=== PATIENT | female | born 1975 | race Caucasian/White ===

== ENCOUNTER 2020-03-01 14:29 | Outpatient (REF) | payer BC, SELFPAY ==
[2020-03-01 15:31] LABS: Hematocrit 42.2 % (37-47); Hemoglobin 14.4 g/dl (12.0-16.0); Mean Corpuscular HGB Conc 34.1 g/dl (31.0-35.0); Mean Corpuscular Hemoglobin 30.7 pg (27.0-33.0); Mean Platelet Volume 10.6 fL (9.4-12.3); Platelet Count 295 X10*3/uL (160-400); Red Blood Count 4.69 X10*6/uL (4.20-5.50); Red Cell Distribution Width 12.7 % (11.0-16.0); White Blood Count 10.4 X10*3/uL (4.8-10.8)
[2020-03-01 15:46] LABS: Estimated Average Glucose 123 mg/dL; Hemoglobin A1C 151.5872 umol/L; Hemoglobin A1c % 5.9 %
[2020-03-01 16:11] LABS: Alanine Aminotransferase 30 U/L (0-31); Albumin Level 4.7 g/dL (3.5-5.0); Alkaline Phosphatase 83 U/L (39-117); Anion Gap 14 (12-20); Aspartate Amino Transferase 23 U/L (5-31); Bilirubin Direct 0.2 mg/dL (0.0-0.5); Bilirubin Total 0.7 mg/dL (0.0-1.0); Blood Urea Nitrogen 17 mg/dL (9-16); Calcium 10.2 mg/dL (8.4-10.2); Carbon Dioxide 29 mmol/L (22-29); Chloride 99 mmol/L (96-108); Cholesterol 190 mg/dL; Estimated Glomerular Filt Rate > 60; Glucose Random 127 mg/dL (60-115); HDL Cholesterol 47 mg/dL; LDL Cholesterol Calculated 102 mg/dl; Potassium 4.3 mmol/l (3.3-5.1); Sodium 138 mmol/L (135-145); Total Protein 7.8 g/dL (6.5-8.0); Triglycerides 206 mg/dL
== END 2020-03-01 14:30 | disposition home or self-care (01) ==
LOC: HO.LAB 14:29
PROVIDERS: PCP Internal Medicine; Visit Provider Internal Medicine
DX: E11.9 Type 2 diabetes mellitus without complications (principal)
CPT/HCPCS: 36415; 80048; 80061; 80076; 83036; 85027

== ENCOUNTER 2022-04-06 15:20 | Outpatient (REF) | payer BC, SELFPAY ==
--- NOTE | ~2022-04-06 | MM_ITS ---
EXAMINATION: MM SCREENING DIGITAL BREAST TOMOSYNTHESIS, BILATERAL CLINICAL INFORMATION: Screening. Asymptomatic. The lifetime risk of breast cancer based on the Tyrer-Cuzick Model is 24.8%. Additional annual screening with breast MRI may be of benefit in women with a score of 20% or greater. COMPARISON: Mammography: March 18, 2019 and studies dating back to October 24, 2010 TECHNIQUE: Digital breast tomosynthesis is performed in both the craniocaudal and mediolateral oblique views along with computer-aided detection (CAD). Synthesized 2D images are generated from the tomosynthesis. FINDINGS: The breasts are heterogeneously dense, which may obscure small masses (ACR BI-RADS breast composition Category c). There are no significant masses, abnormal calcifications, or other abnormalities. There is multiplicity and bilaterality of stable calcifications. MM/MM tomosynthesis screening BI IMPRESSION: No significant changes from prior exam. ASSESSMENT: BI-RADS 1: Negative RECOMMENDATION: Routine annual mammography screening. This patient's information was entered into a reminder system with a target due date for their next mammogram.
== END 2022-04-06 15:21 | disposition home or self-care (01) ==
LOC: HO.MAMMO 15:20
PROVIDERS: PCP Internal Medicine; Visit Provider Internal Medicine
DX: Z12.31 Encounter for screening mammogram for malignant neoplasm of breast (principal)
CPT/HCPCS: 77063; 77067

== ENCOUNTER 2022-07-20 15:33 | Outpatient (REF) | payer BC, SELFPAY ==
[2022-07-20 16:06] LABS: Hematocrit 44.3 % (37.0-47.0); Hemoglobin 15.4 g/dl (12.0-16.0); Mean Corpuscular HGB Conc 34.8 g/dl (31.0-35.0); Mean Corpuscular Hemoglobin 30.4 pg (27.0-33.0); Mean Corpuscular Volume 87.4 fL (80.0-98.0); Mean Platelet Volume 10.4 fL (9.4-12.3); Platelet Count 238 X10*3/uL (160-400); Red Blood Count 5.07 X10*6/uL (4.20-5.50); Red Cell Distribution Width 12.3 % (11.0-16.0); White Blood Count 8.9 X10*3/uL (4.8-10.8)
[2022-07-20 16:32] LABS: Estimated Average Glucose 189 mg/dL; Hemoglobin A1c % 8.2 %
[2022-07-20 16:39] LABS: Alanine Aminotransferase 38 U/L (0-31); Albumin Level 4.5 g/dL (3.5-5.0); Alkaline Phosphatase 79 U/L (39-117); Anion Gap 15 (12-20); Aspartate Amino Transferase 27 U/L (5-31); Bilirubin Direct 0.2 mg/dL (0.0-0.5); Blood Urea Nitrogen 20 mg/dL (9-16); Carbon Dioxide 30 mmol/L (22-29); Chloride 102 mmol/L (96-108); Cholesterol 193 mg/dL; Estimated Glomerular Filt Rate > 60; Glucose Random 112 mg/dL (60-115); HDL Cholesterol 43 mg/dL; LDL Cholesterol Calculated 113 mg/dl; Sodium 143 mmol/L (135-145); Total Protein 7.6 g/dL (6.5-8.0); Triglycerides 188 mg/dL
[2022-07-20 16:53] LABS: Thyroid Stimulating Hormone 1.81 uIU/mL (0.32-4.0)
[2022-07-20 17:46] LABS: Appearance Urine Clear; Color Urine Yellow; Glucose Urine UA Negative (Negative); Leukocyte Esterase Urine Trace (Negative); Nitrite Urine Negative (Negative); Specific Gravity - Urine 1.015 (1.005-1.025); UMIC TRIGGER UA YES; Urine Blood Negative (Negative); Urine Ketones Negative (Negative); Urine Protein Negative (Neg-Trace)
[2022-07-20 18:00] LABS: Bacteria Urine None Seen (None Seen); Hyaline Casts Urine 0-2 /LPF (0-2); RBC Urine 0-2 /HPF (0-2); WBC Urine 0-5 /HPF (0-5)
[2022-07-20 18:04] LABS: Creatinine Urine 68.07 mg/dL; Microalbum/Creatinine Ratio Ur 99.8 ug/mg cr
== END 2022-07-20 15:34 | disposition home or self-care (01) ==
LOC: HO.LAB 15:33
PROVIDERS: PCP Internal Medicine; Visit Provider Internal Medicine
DX: E11.9 Type 2 diabetes mellitus without complications (principal)
CPT/HCPCS: 36415; 80048; 80061; 80076; 81001; 82043; 83036; 84443; 85027

== ENCOUNTER 2022-11-16 07:57 | Outpatient (REF) | payer BC, SELFPAY ==
[2022-11-24 08:59] LABS: HPV mRNA E6/E7 rflx Not Detected (Not Detected)
== END 2022-11-16 07:58 | disposition home or self-care (01) ==
LOC: HO.LNP 07:57
PROVIDERS: PCP Internal Medicine; Visit Provider Obstetrics & Gynecology
DX: Z01.419 Encounter for gynecological examination (general) (routine) without abnormal findings (principal); I10 Essential (primary) hypertension; Z91.89 Other specified personal risk factors, not elsewhere classified
CPT/HCPCS: 87624; 88142

== ENCOUNTER 2022-11-16 07:57 | Outpatient (AMB) | payer BC, SELFPAY ==
--- NOTE | 2022-11-16 08:01 | MHC.OFFVIS ---
Intake Vital Signs 11/16/22 08:04 11/16/22 08:35 Height 5 ft 8 in Weight 270 lb BMI 41.0 BP 160/96 H 180/100 H Intake Visit Reasons: New patient Annual Intake Note: no concerns Vice President Planning Required: No Information Interpreted: non-clinical & clinical Small Package And Bundle Sorter Clerk: Small Package And Bundle Sorter Clerk Present (Karuna HOANG) Accompanied by: Self / Same As Patient Allergies No Known Allergies Allergy (Verified 11/16/22 08:05) HPI HPI Comments History of Present Illness Details Presenting for annual exam. No complaints. Last Pap/HPV was in 06/21 was negative Last Mammogram was BI-RADS 1 in 04/27,TC lifetime breast cancer risk is 24.8% no previous screening colonoscopy [facility] Medical History Class 2 severe obesity with body mass index (BMI) of 35 to 39.9 with serious comorbidity Diabetes mellitus Essential hypertension Surgical History History of ovarian resection History of wisdom tooth extraction Family History Father Prostate cancer Skin cancer Mother No problems noted. 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 Sexual orientation: Straight/Heterosexual Gender identity: Female Cognitive needs: No Hearing needs: No Vision needs: Yes (contact/ glasses) Female Reproductive History Menstrual control method: progestin IUCD Total pregnancies: 0 Date of last pap smear: 06/25/14 Review of Systems Const All systems reviewed & are unremarkable except as noted in HPI and below Card Reports as per HPI Resp Reports as per HPI GI Reports as per HPI and Reports no additional complaints Reports as per HPI Physical Exam Vital Signs: Last Vital Signs BP 160/96 H 11/16/22 08:04 BMI result Body Mass Index 41.0 Const General: cooperative, healthy appearing and comfortable Chest Chest palpation & inspection: normal inspection of the chest and normal palpation of entire chest wall Breast/axilla inspection: normal inspection of the breasts and normal inspection of the axillae Breast/axilla palpation: normal palpation of the breasts, normal palpation of the axillae and no axillary lymphadenopathy Resp Effort & Inspection: normal respiratory effort Auscultation: clear to auscultation bilaterally Percussion: percussion normal Cardio Palpation: normal PMI Rate: regular rate Rhythm: regular rhythm Heart sounds: no murmurs and no rubs Peripheral pulses: Peripheral pulses 2+ throughout GI Inspection: Yes normal to inspection Palpation (GI): Soft to palpation, nontender, no guarding, not rigid and No hepatosplenomegaly present Percussion: Yes normal to percussion Auscultation: normal bowel sounds Rectal Exam - Female: deferred General: Yes bladder normal to palpation External Female Exam: No lesion Speculum Exam - Vagina: normal appearance of the vagina, normal palpation, normal vaginal discharge and not erythematous Speculum Exam - Cervix: normal appearance of the cervix and normal palpation Bimanual exam- vagina & uterus: normal bimanual exam, normal palpation, uterine size normal, bladder normal to palpation, consistency normal and normal palpation Bimanual Exam- Adnexa, other: normal adnexae, no masses and no tenderness Assessment & Plan Assessment & Plan (1) Well woman exam: Code(s): Z01.419 - Encounter for gynecological examination (general) (routine) without abnormal findings Plan: Cotesting done. Instructions given the patient to schedule her next screening Mammogram in 04/28. Counseled the patient about the recommended dietary allowance of 1000 mg of Calcium & 600 IU of vitamin D. The patient was instructed to perform monthly self-breast exams and to schedule an annual exam in a year; will refer the patient to GI for screening colonoscopy. All questions answered and the patient verbalized understanding. Instructed the patient to schedule annual exam in a year (2) At high risk for breast cancer: Code(s): Z91.89 - Other specified personal risk factors, not elsewhere classified Plan: Discussed with the patient her increased risk for Breast ca. The lifetime risk of breast cancer based on the Tyrer-Cuzick Model is 24.8 % Recommended Mirena IUD removal since decrease the risk of breast cancer above her baseline elevated risk, the patient verbalized understanding and decided to schedule an appointment for Mirena IUD removal. Recommended Intensification of breast Cancer screening with annual MRI breast in addition to annual mammogram and MRI alternating every 6 months. Mammogram done recently , Breast MRI ordered Will refer to Dr Kellogg for possible Genetic Ca counseling and possible testing, in addition to counseling regarding Chemoprevention strategies All questions answered, the patient verbalized understanding and agreed with the plan (3) Family planning advice: Code(s): Z30.09 - Encounter for other general counseling and advice on contraception Plan: Informed the patient of her date of Mirena IUD insertion on , discussed with the patient that the Mirena IUD is , in addition recommended IUD removal because of her increased breast cancer risk and a further increase associated with Mirena IUD. Discussed with the patient the different options of control including control pills/Nuvaring, DMPA, different types of IUD ?s ( cu vs progesterone) , sterilization. All the pros, cons, risks and benefits of each were discussed with the patient. The patient decided to think about it and get back to us. Instructions given the patient to schedule Mirena IUD insertion appointment as soon as possible, meanwhile use a backup method for control for contraception since IUD is (4) Essential hypertension: Code(s): I10 - Essential (primary) hypertension Plan: Blood pressure is elevated after multiple readings, the patient was sent to the emergency room for further management. Orders: Orders MR breast BI wo/w con Today Z91.89 - Other specified personal risk factors, not elsewhere classified Pap Smear Today Z01.419 - Encounter for gynecological examination (general) (routine) without abnormal findings Referrals General Surgery Referral Z91.89 - Other specified personal risk factors, not elsewhere classified Gastroenterology Referral Z12.11 - Encounter for screening for malignant neoplasm of colon Coding Level of Care Code New Pt Prev Care 40-64y(86391) Diagnoses Well woman exam Z01.419 At high risk for breast cancer Z91.89 Family planning advice Z30.09 Essential hypertension I10
[2022-11-16 08:04] VITALS: BP 160/96; BMI 41.0
[2022-11-16 08:35] VITALS: BP 180/100
== END 2022-11-16 08:51 | disposition home or self-care (01) ==
LOC: HO.HWS 07:57
PROVIDERS: PCP Internal Medicine; Visit Provider Obstetrics & Gynecology
DX: Z01.419 Encounter for gynecological examination (general) (routine) without abnormal findings (principal); Z91.89 Other specified personal risk factors, not elsewhere classified; I10 Essential (primary) hypertension
CPT/HCPCS: 99386

== ENCOUNTER 2022-11-16 08:51 | Emergency (ER) | payer BC, SELFPAY ==
[2022-11-16 09:22] VITALS: BP 190/96; PULSE 100; RESP 16; TEMP 36.3; O2SAT 99; BMI 41.0
[2022-11-16 09:27] VITALS: BP 199/102
--- NOTE | 2022-11-16 09:28 | ED_ITS ---
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 Patient admits currently takes Losartan 100 mg and Spironolactone 50 mg daily, reports compliance with antihypertensives. Reports PCP recently changed previous HCTZ to Spironolactone. Denies symptoms at present including headache, vision changes/blurry vision, CP/SOB, numbness, tingling, weakness. Related Data Home Medications Medication Instructions Recorded Confirmed aspirin 81 mg tablet,delayed 81 mg PO DAILY 03/08/20 10/20/22 release multivitamin 1 tab PO DAILY 03/08/20 10/20/22 levonorgestrel 21 mcg/24 hours (8 intrauterine 11/16/22 yrs) 52 mg intrauterine device (Mirena) multivitamin 1 tab PO DAILY 11/16/22 Previous Rx's Medication Instructions Recorded Toujeo Max U-300 SoloStar 300 76 unit (0.2533 mL) subcut DAILY 10/20/22 unit/mL (3 mL) subcutaneous 90 days #22.797 mL insulin pen (insulin glargine U-300 conc) insulin lispro 100 unit/mL 20 unit (0.2 mL) subcut TID 90 10/20/22 subcutaneous pen (Humalog #54 mL (U-100) Insulin) losartan 100 mg tablet 100 mg PO DAILY #90 tabs 10/20/22 pen needle, diabetic 32 gauge x #100 ea 10/20/22/ (Comfort EZ Pen [place]) simvastatin 10 mg tablet 10 mg PO BEDTIME #90 tabs 10/20/22 spironolactone 50 mg tablet 50 mg PO DAILY #30 tabs 11/13/22 (Aldactone) Allergies Allergy/AdvReac Type Severity Reaction Status Date / Time No Known Allergies Allergy Verified 11/16/22 08:05 Review of Systems Review of Systems: Constitutional: No Fever, No Chills, No Fatigue, No Malaise ENT/Mouth: No Ear Pain, No sore throat, No Rhinorrhea, No Swallowing Difficulty Eyes: No Eye Pain, No Swelling, No Redness, No Vision Changes Cardiovascular: No Chest Pain, No SOB, No Edema, No Palpitations Respiratory: No Cough, No Sputum, No Dyspnea Gastrointestinal: No Nausea, No Vomiting, No Diarrhea, No Constipation, No Abdominal pain Musculoskeletal: No joint pain, No Myalgias, No Joint Swelling Skin: No Skin Lesions, No rash Neuro: No Weakness, No Numbness, No Paresthesias, No Loss of Consciousness, No Dizziness, No Headache Yes all other systems are reviewed and are negative Constitutional: Constitutional: Reports as per [facility] Past Medical History Attestation statement: The following information was validated with the patient. Source: old records reviewed Medical History Class 2 severe obesity with body mass index (BMI) of 35 to 39.9 with serious comorbidity Diabetes mellitus Essential hypertension Surgical History History of ovarian resection History of wisdom tooth extraction Family History Family History Father Prostate cancer Skin cancer Mother No problems noted. 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 Gender identity: Female Cognitive needs: No Hearing needs: No Vision needs: Yes (contact/ glasses) Physical Exam ED Vital Signs: Vital Signs - 24 hr 11/16/22 09:22 11/16/22 09:27 11/16/22 09:58 Temperature 97.3 F Pulse Rate 100 Respiratory Rate 16 Blood Pressure 190/96 H 199/102 H 198/88 H Pulse Oximetry 99 Oxygen Delivery Method Room Air BMI result Body Mass Index 41.0 Const General: cooperative, healthy appearing and no acute distress Orientation/consciousness: patient oriented x3 Limitations: no limitations HENMT Head: Yes normal to inspection and Yes atraumatic Ears: hearing grossly normal bilaterally General nose exam: Normal external nose present Face and sinus: Yes normal facial exam Eyes General: appearance normal, both eyes and all related structures EOM: EOMs intact bilaterally Neck Neck: Yes normal visual inspection and Yes no meningeal signs Resp Effort & Inspection: normal respiratory effort and no respiratory distress Auscultation: clear to auscultation bilaterally, no rhonchi and no wheezes Cardio Rate: regular rate Heart sounds: S1 normal heart sound present and S2 normal heart sound present Skin Rashes: no rashes Wounds: no wounds Neuro General: patient oriented x3, gait normal, tone normal, moves all extremities, no meningeal signs, no focal motor deficits and CN's II-XI intact bilaterally Gait exam (Neuro): Normal gait present Extrem General: Yes normal to inspection Medical Decision Making Medical Decision Making MDM Narrative: 47-year-old female with a past medical history of diabetes, obesity, HTN, presenting to the ED sent in from asset protection officer office for hypertension noted in office TWISTING FRAME CHANGER 190'/90's. On exam hypertensive initially 190/96, repeat 198/88, asymptomatic, no focal neuro deficits, ambulating with steady gait. Patient a dmits she has PCP appointment at 10:00AM today across the street due to hypertension. Case discussed with the ED attending Dr. Bauman, in agreement will discharge patient to PCP appointment for medication adjustments. Low suspicion for ICH, ACS, dissection, hypertensive urgency/emergency Patient will proceed directly to PCPs office from the ED Results discussed with patient including worrisome signs and symptoms and strict return precautions, and when to return to the emergency department. They verbalized understanding and feel safe for discharge at this time. Differential Diagnosis Differential Diagnoses: The differential diagnosis associated with the presentation includes As above External Record Review External record reviewed: Inpatient record, Office record, Outpatient record, Prior outpatient labs, Prior outpatient radiology, Primary care record and Outside ED record Tests considered The following testing was considered but not selected: As above Chronic Conditions Patient?s care impacted by: Hypertension Discharge Plan Discharge Clinical Impression: Asymptomatic hypertension Patient Disposition: Home, Self-Care Instructions: Hypertension (ED) Additional Instructions: PLEASE GO DIRECTLY TO YOUR PCPS OFFICE If he developed headache, chest pain, dizziness, vision changes, numbness/tingling or weakness return to the ED immediately Prescriptions: No Action spironolactone [Aldactone] 50 mg tablet 50 mg PO DAILY Qty: 30 1RF aspirin 81 mg tablet,delayed release (DR/EC) 81 mg PO DAILY multivitamin Tablet 1 tab PO DAILY insulin lispro [Humalog KwikPen Insulin] 100 unit/mL insulin pen 20 unit subcut TID 90 Days Qty: 54 1RF losartan 100 mg tablet 100 mg PO DAILY Qty: 90 2RF (DME) pen needle, diabetic [Comfort EZ Pen [place]] 32 gauge x 1/4 needle See Rx Instructions .ROUTE .MEDSUPPLY Qty: 100 1RF Rx Instructions: As directed simvastatin 10 mg tablet 10 mg PO BEDTIME Qty: 90 1RF Toujeo Max U-300 SoloStar 300 unit/mL (3 mL) insulin pen 76 unit subcut DAILY 90 Days Qty: 22.797 1RF multivitamin Tablet 1 tab PO DAILY Mirena 21 mcg/24 hours (8 yrs) 52 mg intrauterine device intrauterine Referrals: Justice Lizarraga MD [Primary Care Provider] - (now)
[2022-11-16 09:58] VITALS: BP 198/88
== END 2022-11-16 10:31 | disposition home or self-care (01) ==
PROVIDERS: Emergency Provider Emergency Medicine Emergency Medical Services; PCP Internal Medicine
DX: I10 Essential (primary) hypertension (principal); E11.9 Type 2 diabetes mellitus without complications; Z79.899 Other long term (current) drug therapy
CPT/HCPCS: 99282; 99284

== ENCOUNTER 2022-11-16 10:02 | Outpatient (AMB) | payer BC, SELFPAY ==
--- NOTE | 2022-11-16 10:08 | MHC.PC.OV ---
Vital Signs 11/16/22 10:09 Height 5 ft 8 in Weight 270 lb BMI 41.0 BP 192/100 H Blood Pressure Location Lt brachial Position Sitting Pulse 113 H Pulse Source Pulse Oximeter Pulse Oximetry (%) 98 Intake Visit Reasons: High BP during OB visit today Intake Note: pt is here for HTN, was seen in OB office for her annual exam today Licensed Mortgage Loan Officer Required: No Accompanied by: Self / Same As Patient Allergies No Known Allergies Allergy (Verified 11/16/22 10:19) Medication List - Last Reconciled 11/16/22 by Christian Hu PA-C aspirin 81 mg PO DAILY insulin lispro (Humalog KwikPen (U-100) Insulin) 20 units (0.2 mL) subcut TID 90 days levonorgestrel (Mirena) intrauterine losartan 100 mg PO DAILY multivitamin 1 tab PO DAILY multivitamin 1 tab PO DAILY pen needle, diabetic (Comfort EZ Pen [place]) As directed simvastatin 10 mg PO BEDTIME spironolactone (Aldactone) 50 mg PO DAILY Toujeo Max U-300 SoloStar (insulin glargine U-300 conc) 76 units (0.2533 mL) subcut DAILY 90 days NS Tobacco use date assessed: 11/16/22 Dental Screening Dental Screen Date: 11/16/22 Did you have a dental visit in the last 12 months?: Yes Was dental information given to patient?: Patient has dentist HPI High BP during OB visit today HPI Details Patient is a 47-year-old female here today for a problem visit. Patient has a past medical history significant for obesity, and diabetes. Recently seen at her OBGYN office and found to have elevated blood pressure readings 180s to 190 systolic. Patient is asymptomatic without any headache, blurred vision or chest discomforts. Recently had her hydrochlorothiazide discontinued and placed on Aldactone though feels her BP has increased. [facility] Medical History Class 2 severe obesity with body mass index (BMI) of 35 to 39.9 with serious comorbidity Diabetes mellitus Essential hypertension Surgical History History of ovarian resection History of wisdom tooth extraction Family History Father Prostate cancer Skin cancer Mother No problems noted. 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 Maksim Roth, Luiza Morales, Marc Chavez and colleagues, with an educational nadia from [employer]. Review of Systems Const Denies headache(s) Eyes Denies loss of vision ENT Denies vertigo, Denies dizziness, Denies headache(s) and Denies sore throat Card Denies chest pain, Denies leg edema and Denies lightheadedness Resp Denies cough, Denies hemoptysis and Denies wheezing GI Denies abdominal pain, Denies melena, Denies constipation, Denies diarrhea and Denies vomiting Denies urinary frequency, Denies dysuria and Denies urinary urgency Musc Denies arthralgias, Denies joint swelling, Denies numbness and Denies tingling Neuro Denies Abnormal speech present, Denies behavioral changes, Denies vertigo, Denies dizziness, Denies headache(s), Denies loss of vision, Denies memory loss, Denies numbness and Denies tingling Psych Denies anxiety, Denies behavioral changes, Denies depression, Denies memory loss and Denies panic attacks Farhan/Lymph Denies easy bleeding and Denies easy bruising Aller/Immun Denies wheezing Physical exam (Primary Care) Vital Signs: Last Vital Signs Pulse 113 H 11/16/22 10:09 BP 192/100 H 11/16/22 10:09 Pulse Ox 98 11/16/22 10:09 BMI result Body Mass Index 41.0 Tobacco/Smoking Status: Tobacco use Status Tobacco use date assessed 11/16/22 11/16/22 10:13 Patient Tobacco Use Status Never used Tobacco 07/13/23 10:13 e-Cigarette/Vaping Use Never Used 11/16/22 10:13 Thrive Assessment: Date of Thrive Assessment Date Thrive assessed 07/20/22 11/16/22 10:13 Const General: healthy appearing, no acute distress, alert and awake Nutritional Appearance: well nourished Orientation/consciousness: oriented to person, oriented to place and oriented to time HENMT Ears: TM's normal bilaterally General nose exam: Normal nasal mucous membranes and turbinates present Eyes Conjunctivae: conjunctivae normal Sclerae: sclerae normal Pupils: Equal, round and reactive pupils present Neck Neck: Yes no lymphadenopathy and Yes no JVD Thyroid: Thyroid normal Carotids: no bruits Resp Effort & Inspection: normal respiratory effort and not tachypneic Auscultation: no crackles, no rales, no rhonchi and no wheezes Cardio Rate: regular rate Rhythm: regular rhythm Heart sounds: no murmurs and normal S1 and S2 GI Palpation (GI): Soft to palpation, nontender, no hepatomegaly and no splenomegaly Auscultation: normal bowel sounds Skin General skin exam: no rashes or lesions noted and dry skin Neuro General: oriented to person, oriented to place and oriented to time Cranial nerves: Yes Equal, round and reactive pupils present Speech: No Abnormal speech present Gait exam (Neuro): Normal gait present Motor exam (neuro): no tremor noted Extrem Right upper extremity: full ROM Left upper extremity: full ROM Right lower extremity: full ROM; no edema Left lower extremity: full ROM; no edema Psych Mental Status: mental status grossly normal Speech and movement: Normal speech and movement present Affect: normal affect Attitude: cooperative Thought process: Normal thought process present Assessment and Plan Assessment & Plan (1) Essential hypertension: Code(s): I10 - Essential (primary) hypertension Plan: Blood pressure elevated today in office. Patient completely asymptomatic. Has been started on Aldactone 50 mg and reports seems to have elevated her blood pressure. Will transition to amlodipine 5 mg and up titrate accordingly. Advised to continue low-sodium diet and monitoring blood pressure at home with goal blood pressure to be below 140/90 Medications: New amlodipine 5 mg PO DAILY 30 days 30 tabs 1RF I10 - Essential (primary) hypertension On Hold spironolactone (Aldactone) Hold Comment: Doctor's Order 50 mg PO DAILY 30 tabs 1RF Coding Level of Care Code Est Pt Level 3 (75793) Diagnoses Essential hypertension I10
[2022-11-16 10:09] VITALS: BP 192/100; PULSE 113; O2SAT 98; BMI 41.0
== END 2022-11-16 10:43 | disposition home or self-care (01) ==
PROVIDERS: PCP Internal Medicine; Visit Provider Physician Assistant
DX: I10 Essential (primary) hypertension (principal)
CPT/HCPCS: 99213

== ENCOUNTER 2022-12-26 08:53 | Outpatient (AMB) | payer BC, SELFPAY ==
--- NOTE | 2022-12-26 08:48 | A.OFFVIS_ITS ---
Intake Vital Signs 12/26/22 08:59 Height 5 ft 8 in Weight 275 lb BMI 41.8 BP 160/100 H Blood Pressure Location Lt brachial Position Sitting Intake Visit Reasons: Personal risk factors Intake Note: Patient is seen in office for evaluation and treatment of high risk factors of the breast cancer. 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 Present Accompanied by: Self / Same As Patient Allergies No Known Allergies Allergy (Verified 12/26/22 08:58) Medication List - Last Reconciled 12/26/22 by Lavelle Kellogg MD amlodipine 5 mg PO DAILY 30 days aspirin 81 mg PO DAILY insulin lispro (Humalog KwikPen (U-100) Insulin) 20 units (0.2 mL) subcut TID 90 days levonorgestrel (Mirena) intrauterine losartan 100 mg PO DAILY multivitamin 1 tab PO DAILY multivitamin 1 tab PO DAILY pen needle, diabetic (Comfort EZ Pen [place]) As directed simvastatin 10 mg PO BEDTIME spironolactone (Aldactone) 50 mg PO DAILY Toujeo Max U-300 SoloStar (insulin glargine U-300 conc) 76 units (0.2533 mL) subcut DAILY 90 days NS HPI HPI Comments History of Present Illness Details 47-year-old female patient presenting for high risk breast examination. Patient reports a strong family history of breast cancer with both her maternal and paternal grandmother. Her maternal grandmother developed breast cancer at the age of 45 but she is uncertain about her paternal grandmother. She denies a previous history of breast problems or breast surgery. She is 0. She denies any current breast symptoms including breast pain, nipple discharge, palpable mass or enlarged lymph nodes. Her most recent mammogram of 04/06/2022 revealed no mammographic evidence of malignancy (BI-RADS 1). Her Tyrer-Cuzick remaining lifetime risk of breast cancer 24.8 %, well above the 20% threshold placing her at high risk for breast cancer. A breast MRI has been ordered by Dr. Roberson; the patient has not scheduled testing yet. [facility] Medical History Class 2 severe obesity with body mass index (BMI) of 35 to 39.9 with serious comorbidity Diabetes mellitus Essential hypertension Surgical History History of ovarian resection History of wisdom tooth extraction Family History Father Prostate cancer, Onset Age: 60 Skin cancer Mother No problems noted. 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 Gender identity: Female Cognitive needs: No Hearing needs: No Vision needs: Yes (contact/ glasses) Female Reproductive History Menstrual Age of Menarche: 14 Total pregnancies: 0 Review of Systems Const All systems reviewed & are unremarkable except as noted in HPI and below Denies chills, Denies fever(s), Denies headache(s), Denies poor appetite and Denies weakness ENT Denies headache(s) Card Denies chest pain, Denies irregular heart rhythm, Denies palpitations and Denies dyspnea Resp Denies cough, Denies excessive phlegm production and Denies dyspnea GI Denies abdominal pain, Denies bloating, Denies change in bowel habits, Denies constipation, Denies heartburn, Denies diarrhea, Denies nausea and Denies vomiting Denies urinary frequency and Denies nipple discharge Musc Denies back pain, Denies muscle weakness and Denies numbness Skin/Breast Denies breast swelling, Denies breast skin changes, Denies breast pain, Denies breast mass, Denies changing lesions, Denies nipple discharge and Denies unusual bruising Neuro Denies headache(s), Denies numbness, Denies paresthesias and Denies weakness Psych Denies anxiety and Denies depression Endo Denies palpitations Farhan/Lymph Denies lymphadenopathy Physical Exam Vital Signs: Last Vital Signs BP 160/100 H 12/26/22 08:59 BMI result Body Mass Index 41.8 Const General: cooperative and no acute distress Nutritional Appearance: well nourished Orientation/consciousness: patient oriented x3 Limitations: no limitations HEENT Head: Yes normocephalic and Yes atraumatic Ears: hearing grossly normal bilaterally Chest Other: Bilateral dense breast tissue Left breast: No skin change, no nipple retraction, no nipple discharge, no palpable mass, no enlarged lymph nodes. Right breast: No skin change, no nipple retraction, no nipple discharge, no palpable mass, no enlarged lymph nodes Resp Effort & Inspection: normal respiratory effort, no audible wheezes, no cough and no respiratory distress Cardio Jugular venous distension: no JVD GI Inspection: Yes normal to inspection Skin Other: Warm, dry, no rash Neuro General: patient oriented x3 Extrem General: Yes no clubbing, cyanosis or edema Assessment & Plan Assessment & Plan (1) At high risk for breast cancer: Code(s): Z91.89 - Other specified personal risk factors, not elsewhere classified (2) Family history of breast cancer: Code(s): Z80.3 - Family history of malignant neoplasm of breast Plan 47-year-old female patient presenting with a strong family history of breast cancer in both her maternal and paternal grandmothers. She has a calculated Tyrer-Cuzick remaining lifetime risk of breast cancer of 24.8 %. I would agree that a yearly breast MRI and mammogram alternating every 6 months is recommended as well as twice yearly clinical breast examinations. She expressed understanding and agrees with the plan. We also discussed genetic testing and we reviewed the procedure, risks and benefits. She was provided with literature regarding the testing and will call if and when she decides to have testing. She will follow-up in 6 months for clinical breast examination. She is welcome to call sooner for any new concerns. Coding Level of Care Code New Pt Level 4 (15800) Diagnoses At high risk for breast cancer Z91.89 Family history of breast cancer Z80.3
[2022-12-26 08:59] VITALS: BP 160/100; BMI 41.8
== END 2022-12-26 09:18 | disposition home or self-care (01) ==
PROVIDERS: PCP Internal Medicine; Referring Provider Obstetrics & Gynecology; Visit Provider Surgery
DX: Z80.3 Family history of malignant neoplasm of breast (principal); Z91.89 Other specified personal risk factors, not elsewhere classified
CPT/HCPCS: 99203

== ENCOUNTER → 2022-12-26 08:53 | Outpatient (BNVA) | payer BC, SELFPAY | PROVIDERS: PCP Internal Medicine; Referring Provider Obstetrics & Gynecology; Visit Provider Surgery ==

== ENCOUNTER 2023-01-22 16:43 | Outpatient (REF) | payer BC, SELFPAY | END 2023-01-22 16:44 | disposition home or self-care (01) | LOC: HO.MRI 16:43 | PROVIDERS: PCP Internal Medicine; Visit Provider Obstetrics & Gynecology | DX: Z13.89 Encounter for screening for other disorder (principal) ==

== ENCOUNTER 2023-02-07 15:05 | Outpatient (AMB) | payer BC, SELFPAY ==
--- NOTE | 2023-02-07 15:12 | MHC.OFFVIS ---
Intake Vital Signs 02/07/23 15:18 Height 5 ft 8 in Weight 273 lb 5.971 oz BMI 41.6 BP 162/92 H Blood Pressure Location Lt brachial Position Sitting Intake Visit Reasons: IUD removal/DO NOT RS Allergies No Known Allergies Allergy (Verified 12/26/22 08:58) HPI HPI Comments History of Present Illness Details Presenting for IUD removal PFSH Medical History Essential hypertension Class 2 severe obesity with body mass index (BMI) of 35 to 39.9 with serious comorbidity Diabetes mellitus Surgical History History of wisdom tooth extraction History of ovarian resection Family History Father Prostate cancer, Onset Age: 60 Skin cancer Mother No problems noted. 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 Gender identity: Female Cognitive needs: No Hearing needs: No Vision needs: Yes (contact/ glasses) Female Reproductive History Menstrual Age of Menarche: 14 Physical Exam Vital Signs: BMI result Body Mass Index 41.6 Office Procedures IUD Insert/Removal Details Details: Counseling/Consent: After discussing with the patient the risks of the procedure including bleeding, infection, scar tissue formation, , possible injury to blood vessels or nerves, chronic arm pain, blood transfusion, and irregular unpredictable bleeding Alternative options were discussed with the patient including but not limited: Do nothing. The patient signed the consent and agreed with the plan; all questions answered. Urine test was done in the office and was negative Preop dx: Requesting IUD removal Op: IUD removal Post op dx: same EBL= 10 cc Procedure: The patient was put in the dorsal lithotomy position a speculum was inserted in the vagina the IUD thread identified. Using a Joanna clamp the thread was grasped and the IUD pulled out with no complications. The patient tolerated the procedure well and was advised to use a different method for contraception. Discharge instructions: Instructions were given to the pt to call if temp>100.4, abdominal pain heavy vaginal bleeding, n/v occur. The patient verbalized understanding and all questions answered. This note was generated with a voice recognition program. Some errors may have been overlooked during the review of this note. Sometimes these errors may affect the content or meaning of a given sentence. 27001-HAX Removal Procedure code (CPT) selection complete Assessment & Plan Assessment & Plan (1) Encounter for IUD removal: Code(s): Z30.432 - Encounter for removal of intrauterine contraceptive device Plan: Mirena IUD removed, see procedure note instructions given the patient to use a backup method for control to eliminate the risk of . All questions answered, the patient verbalized understanding Coding Level of Care Code Procedure Only Diagnoses Encounter for IUD removal Z30.432 CPT Codes Details - CPT: 08501-TKM Removal ([id number])
[2023-02-07 15:18] VITALS: BP 162/92; BMI 41.6
== END 2023-02-07 15:53 | disposition home or self-care (01) ==
PROVIDERS: PCP Internal Medicine; Visit Provider Obstetrics & Gynecology
DX: Z30.432 Encounter for removal of intrauterine contraceptive device (principal)
CPT/HCPCS: 58301

== ENCOUNTER → 2023-02-07 15:05 | Outpatient (BNVA) | payer BC, SELFPAY | PROVIDERS: PCP Internal Medicine; Visit Provider Obstetrics & Gynecology | DX: Z30.432 Encounter for removal of intrauterine contraceptive device (principal) | CPT/HCPCS: 58301 ==

== ENCOUNTER 2023-02-16 16:04 | Outpatient (AMB) | payer BC, SELFPAY ==
[2023-02-16 16:21] VITALS: BP 210/100; PULSE 101; O2SAT 99; BMI 41.7
--- NOTE | 2023-02-16 16:21 | A.OFFPC_ITS ---
Vital Signs 02/16/23 16:21 02/16/23 16:47 Height 5 ft 8 in Weight 274 lb BMI 41.7 BP 210/100 H 200/96 H Blood Pressure Location Lt brachial Lt brachial Position Sitting Sitting Pulse 101 H Pulse Source Pulse Oximeter Temp Source Skin Pulse Oximetry (%) 99 Oxygen Delivery Method Room Air Intake Visit Reasons: 3M F/U-BP/A1C Allergies No Known Allergies Allergy (Verified 02/16/23 16:35) Medication List - Last Reconciled 02/16/23 by EDA Marley amlodipine 5 mg PO DAILY 30 days aspirin 81 mg PO DAILY insulin glargine U-300 conc (Toujeo Max U-300 SoloStar) 76 units subcut BEDTIME insulin lispro (Humalog KwikPen (U-100) Insulin) 20 units (0.2 mL) subcut TID 90 days losartan 100 mg PO DAILY multivitamin 1 tab PO DAILY pen needle, diabetic (Comfort EZ Pen [place]) As directed simvastatin 10 mg PO BEDTIME Tobacco use date assessed: 02/16/23 Dental Screening Dental Screen Date: 02/16/23 Did you have a dental visit in the last 12 months?: Yes Did you have a dental problem in the last 6 months where you did not have access to dental care?: No Was dental information given to patient?: Patient has dentist HPI 3M F/U-BP/A1C HPI Details Patient is a 47-year-old female who presents today to follow-up on chronic conditions. Patient of Dr. Lizarraga. Medical history significant for diabetes, obesity, hypertension among others. Patient reports that she is compliant with medications and denies side effects. Reports blood sugars today 104 and 114. Reports blood pressures at home running between 130s and over 80s- 70s. Also she reports systolic blood pressure at home 160 -150 about 2 days ago. Blood pressure high in the office today, patient denies shortness of breath, chest pain, headache, or vision changes. [facility] Medical History Essential hypertension Class 2 severe obesity with body mass index (BMI) of 35 to 39.9 with serious comorbidity Diabetes mellitus Surgical History History of wisdom tooth extraction History of ovarian resection Family History Father Prostate cancer, Onset Age: 60 Skin cancer Mother No problems noted. 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 How often do you have a drink containing alcohol?: Never 3. How often do you have six or more drinks on one occasion?: Never Total Score: 0 Score Reviewed/Action Taken: No RADHA-7 AMB Questionnaire RADHA-7 Date RADHA - 7 assessed: 07/20/22 Source: Developed by Drs. Maksim Roth, Luiza Morales, Marc Chavez and colleagues, with an educational nadia from [employer]. Review of Systems Const Denies body aches, Denies chills, Denies fever(s) and Denies headache(s) Eyes Denies change in vision ENT Denies dizziness, Denies otalgia, Denies headache(s), Denies nasal discharge, Denies sinus pain and Denies sore throat Card Denies chest pain, Denies edema, Denies lightheadedness and Denies dyspnea Resp Denies cough, Denies dyspnea and Denies wheezing GI Denies abdominal pain Denies dysuria Musc Denies myalgias Skin/Breast Denies lesions, Denies rash and Denies unusual bruising Neuro Denies dizziness and Denies headache(s) Aller/Immun Denies wheezing Physical exam (Primary Care) Vital Signs: Last Vital Signs Pulse 101 H 02/16/23 16:21 BP 200/96 H 02/16/23 16:47 Pulse Ox 99 02/16/23 16:21 Oxygen Delivery Method Room Air 02/16/23 16:21 BMI result Body Mass Index 41.7 Tobacco/Smoking Status: Tobacco use Status Tobacco use date assessed 02/16/23 02/16/23 16:30 Patient Tobacco Use Status Never used Tobacco 02/16/23 16:24 e-Cigarette/Vaping Use Never Used 02/16/23 16:24 Thrive Assessment: Date of Thrive Assessment Date Thrive assessed 07/20/22 02/16/23 16:24 Const General: cooperative and no acute distress Orientation/consciousness: patient oriented x3 HENMT Head: Yes normocephalic and Yes atraumatic Face and sinus: Yes sinuses nontender Mouth: oropharynx normal and moist mucous membranes Throat: Yes posterior oropharynx normal Eyes General: appearance normal, both eyes and all related structures Neck Neck: Yes normal visual inspection, Yes full ROM and Yes no lymphadenopathy Resp Effort & Inspection: normal respiratory effort and able to speak in complete sentences Auscultation: clear to auscultation bilaterally, no crackles, no rales, no rhonchi and no wheezes Cardio Rate: regular rate Rhythm: regular rhythm Heart sounds: S1 normal heart sound present, S2 normal heart sound present and no murmurs GI Auscultation: normal bowel sounds Skin General skin exam: no rashes or lesions noted Neuro General: patient oriented x3 Gait exam (Neuro): Normal gait present Extrem General: Yes full ROM and No edema Results AMB Hemoglobin A1c AMB Hemoglobin A1c 6.8 % Last Edit by NATALYA Bradshaw on 02/16/23 16:34 Results Reviewed Results Reviewed: Laboratory Last Values Hgb A1c (Clinic) 6.8 % (4.0-6.0) H 02/16/23 16:31 Assessment and Plan Assessment & Plan (1) Essential hypertension: Code(s): I10 - Essential (primary) hypertension Plan: Goal BP equal or less than 140/90 Patient denies acute symptoms in the office today, blood pressure high Increase amlodipine to 10 mg daily Continue losartan Signs and symptoms reviewed when to notify provider or go to the emergency department Follow-up with nurse in 2 weeks for BP recheck Low-sodium diet and weight loss Continue to monitor blood pressures at home (2) Class 2 severe obesity with body mass index (BMI) of 35 to 39.9 with serious comorbidity: Code(s): E66.01 - Morbid (severe) obesity due to excess calories Plan: Healthy food choices and exercise as tolerated (3) Diabetes mellitus: Code(s): E11.9 - Type 2 diabetes mellitus without complications Qualifiers: Diabetes mellitus type: type 2 Diabetes mellitus 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 use: with marine oil terminal superintendent use Diabetes mellitus complication status: without complication Qualified Code(s): E11.9 - Type 2 diabetes mellitus without complications; Z79.4 - skilled nursing (current) use of insulin Plan: A1c 6.8 today, goal less than 7 Continue insulin lispro and Toujeo Low-carbohydrate diet and weight loss Patient reports that she is up-to-date with diabetic eye exam - and also next month will be seeing retina specialist Plan Follow-up with PCP in 3 months or sooner as needed Orders: Orders AMB Hemoglobin A1c 02/16/23 E11.9 - Type 2 diabetes mellitus without complications Lipid Panel 02/16/23 I10 - Essential (primary) hypertension Comprehensive [place]. Panel Fast 02/16/23 I10 - Essential (primary) hypertension Medications: New amlodipine 10 mg PO DAILY 30 tabs 2RF I10 - Essential (primary) hypertension Coding Level of Care Code Est Pt Level 4 (56756) Diagnoses Essential hypertension I10 Class 2 severe obesity with body mass index (BMI) of 35 to 39.9 with serious comorbidity E66.01 Type 2 diabetes mellitus without complication, with long-term current use of insulin E11.9; Z79.4 Diabetes mellitus type: type 2 Diabetes mellitus intermediate insulin use: with marine oil terminal superintendent use Diabetes mellitus complication status: without complication
[2023-02-16 16:47] VITALS: BP 200/96
== END 2023-02-16 16:52 | disposition home or self-care (01) ==
PROVIDERS: PCP Internal Medicine; Visit Provider Nurse Practitioner Family
DX: E11.9 Type 2 diabetes mellitus without complications (principal)
CPT/HCPCS: 83036; 99214

== ENCOUNTER 2023-03-07 14:41 | Outpatient (AMB) | payer BC, SELFPAY ==
--- NOTE | 2023-03-07 14:48 | A.OFFVIS_ITS ---
Intake Vital Signs 03/07/23 14:49 03/07/23 16:04 Height 5 ft 8 in Weight 283 lb 1.176 oz BMI 43.0 BP 213/100 H 172/86 H Blood Pressure Location Lt brachial Lt brachial Position Sitting Sitting Pulse 111 H Pulse Source Pulse Oximeter Pulse Oximetry (%) 98 Oxygen Delivery Method Room Air Intake Visit Reasons: Colonoscopy Screening Intake Note: Pt presents to the office today for a colonoscopy screening. Pt denies any GI concerns at this time. Allergies No Known Allergies Allergy (Verified 03/07/23 14:53) HPI Colonoscopy Screening HPI Details 47 year old? female here today for pre c olonoscopy screening.? Patient was sent to us by her PCP.? This is her first colonoscopy screening.? Patient denies any gastrointestinal symptoms in the past or at present.? Denies any personal or family history of gastrointestinal disease, colon polyps, or cancer.? Denies history of difficulty with sedation or anesthesia in the past.? Negative for history of sleep apnea.? Denies any history of cardiac, renal, pulmonary, or hepatic disease.?? No history of infectious? diseases like hepatitis A, B, C, HIV or tuberculosis.? Patient is not on any anticoagulation therapy. ON LICENSE OF [facility] Medical History Essential hypertension Class 2 severe obesity with body mass index (BMI) of 35 to 39.9 with serious comorbidity Diabetes mellitus Surgical History History of wisdom tooth extraction History of ovarian resection Family History Father Prostate cancer, Onset Age: 60 Skin cancer Mother No problems noted. 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 Gender identity: Female Cognitive needs: No Hearing needs: No Vision needs: Yes (contact/ glasses) Female Reproductive History Menstrual Age of Menarche: 14 Review of Systems Const Denies weight gain and Denies weight loss ENT Reports no additional complaints, Denies dysphagia and Denies odynophagia Card Reports no additional complaints Resp Reports no additional complaints GI Denies abdominal pain, Denies belching, Denies melena, Denies bloating, Denies change in bowel habits, Denies dysphagia, Denies excessive flatus, Denies dyspepsia, Denies heartburn, Denies diarrhea, Denies loose stools, Denies nausea, Denies odynophagia and Denies vomiting Reports no additional complaints Musc Reports no additional complaints Neuro Reports no additional complaints Psych Reports no additional complaints Endo Reports no additional complaints Physical Exam Vital Signs: Last Vital Signs Pulse 111 H 03/07/23 14:49 BP 172/86 H 03/07/23 16:04 Pulse Ox 98 03/07/23 14:49 Oxygen Delivery Method Room Air 03/07/23 14:49 BMI result Body Mass Index 43.0 Const General: healthy appearing, no acute distress and well developed Nutritional Appearance: obese Orientation/consciousness: patient oriented x3 HEENT Head: Yes normal to inspection, Yes normocephalic and Yes atraumatic Face and sinus: Yes normal facial exam Mouth: Normal oral and palatal mucosa present Throat: Yes posterior oropharynx normal, Yes tonsils normal and Yes uvula midline Eyes General: appearance normal, both eyes and all related structures Neck Neck: Yes normal visual inspection, Yes full ROM and Yes trachea midline Thyroid: Thyroid normal Resp Effort & Inspection: normal respiratory effort, able to speak in complete sentences, no tracheal deviation and symmetric chest movement Auscultation: clear to auscultation bilaterally Cardio Rate: regular rate Heart sounds: S1 normal heart sound present and S2 normal heart sound present GI Inspection: Yes normal to inspection, No distended and Yes obesity Palpation (GI): Soft to palpation, not firm, nontender and No hepatosplenomegaly present Auscultation: normal bowel sounds General: Yes no CVA tenderness Back/Spine/Pelvis Back: no CVA tenderness Skin General skin exam: elasticity normal, turgor normal and dry skin Neuro General: patient oriented x3 Psych Appearance: grossly normal Mental Status: mental status grossly normal Assessment & Plan Assessment & Plan (1) Screen for colon cancer: Code(s): Z12.11 - Encounter for screening for malignant neoplasm of colon Plan: Patient denies any GI, cardiac or respiratory symptoms.? Denies any issues with anesthesia in the past.? Denies any history of sleep apnea.? No history infectious diseases in the past or present.? Patient is on low-dose aspirin.? Patient is treated for hypertension with amlodipine and losartan. Recently her amlodipine was raised to 10 mg a day. Patient has an anxiety going to doctor's appointment. Seen by line assembler aircraft in November, had high blood pressure and was sent to ER for evaluation. Patient had normal lab results. Started on amlodipine 5 mg then. Recently just few weeks ago amlodipine was increased to 10 mg. Patient also has increased heart rate. Patient would probably benefit with beta pavel like propranolol just before going for procedures. No family or personal history of colon cancer or polyps.? Patient denies melena, hematochezia, unintentional weight loss or ribbon like stools.? Discussed at length the pre-procedure,? prep, diet & medications as well as what to expect prior, during and after the procedure.?? Stressed the importance of good bowel prep. ?Recommended the use of Vaseline or Calmoseptine OTC & baby wipes with bowel movements to promote comfort.? ?Patient verbalizes understanding and agrees to plan of care.? She was given the opportunity to ask questions and all questions answered.? We will see her after the procedure.? Medications: New polyethylene glycol 3350 (Miralax) As directed by gastroenterology department at [facility] 238 grams PO ONCE 238 grams 0RF Z12.11 - Encounter for screening for malignant neoplasm of colon bisacodyl (Dulcolax (bisacodyl)) take 4 tabs at noon the day before your colonoscopy 20 mg (4 x 5 mg) PO ONCE 4 tabs 0RF 1 day Z12.11 - Encounter for screening for malignant neoplasm of colon Coding Level of Care Code New Pt Level 3 (15361) Diagnoses Screen for colon cancer Z12.11 Time Spent (min) 40 Comment 30 minutes spent with patient and additional 10 minutes spent reviewing her records
[2023-03-07 14:49] VITALS: BP 213/100; PULSE 111; O2SAT 98; BMI 43.0
[2023-03-07 16:04] VITALS: BP 172/86
== END 2023-03-07 15:32 | disposition home or self-care (01) ==
PROVIDERS: PCP Internal Medicine; Visit Provider Nurse Practitioner Family
DX: Z01.818 Encounter for other preprocedural examination (principal); Z12.11 Encounter for screening for malignant neoplasm of colon
CPT/HCPCS: S0285

== ENCOUNTER → 2023-03-07 14:41 | Outpatient (BNVA) | payer BC, SELFPAY | PROVIDERS: PCP Internal Medicine; Visit Provider Nurse Practitioner Family ==

== ENCOUNTER 2023-04-10 15:32 | Outpatient (REF) | payer BC, SELFPAY | END 2023-04-10 15:33 | disposition home or self-care (01) | LOC: HO.MAMMO 15:32 | PROVIDERS: PCP Internal Medicine; Visit Provider Internal Medicine | DX: Z12.31 Encounter for screening mammogram for malignant neoplasm of breast (principal) | CPT/HCPCS: 77063; 77067 ==

== ENCOUNTER → 2023-04-10 16:00 | Outpatient (BNV) | payer BC, SELFPAY | PROVIDERS: PCP Internal Medicine; Visit Provider Radiology Diagnostic Radiology | DX: Z12.31 Encounter for screening mammogram for malignant neoplasm of breast (principal) | CPT/HCPCS: 77063; 77067 ==

== ENCOUNTER 2023-05-31 14:17 | Outpatient (AMB) | payer BC, SELFPAY ==
--- NOTE | 2023-05-31 14:21 | MHC.PC.OV ---
Vital Signs 05/31/23 14:24 Height 5 ft 8 in Weight 284 lb 4 oz BMI 43.2 BP 186/90 H Blood Pressure Location Lt brachial Position Sitting Pulse 99 Pulse Source Pulse Oximeter Pulse Oximetry (%) 99 Oxygen Delivery Method Room Air Intake Visit Reasons: DM, HTN Intake Note: Patient is here to follow up on DM, HTN. Compliance Auditor Required: No Painter Decorator: Not Required per policy Accompanied by: Self / Same As Patient Allergies No Known Allergies Allergy (Verified 06/01/23 13:43) Medication List - Last Reconciled 06/01/23 by Justice Lizarraga MD amlodipine 10 mg PO DAILY aspirin 81 mg PO DAILY bisacodyl (Dulcolax (bisacodyl)) 20 mg (4 x 5 mg) PO ONCE 1 day insulin glargine U-300 conc (Toujeo Max U-300 SoloStar) 76 units (0.2533 mL) subcut BEDTIME insulin lispro (Humalog KwikPen (U-100) Insulin) 20 units (0.2 mL) subcut TID 90 days losartan 100 mg PO DAILY multivitamin 1 tab PO DAILY pen needle, diabetic (Comfort EZ Pen [place]) As directed polyethylene glycol 3350 (Miralax) 238 grams PO ONCE propranolol 10 mg PO BID PRN simvastatin 10 mg PO BEDTIME Tobacco use date assessed: 05/31/23 Dental Screening Dental Screen Date: 05/31/23 Did you have a dental visit in the last 12 months?: Yes Did you have a dental problem in the last 6 months where you did not have access to dental care?: No Was dental information given to patient?: Patient has dentist HPI DM, HTN HPI Details 48-year-old female presents to the office to discuss her chronic medical conditions. Patient has not been doing very well with her sugar control. Due to the recent holiday, she has not been following any particular diet. Has been taking the insulin as prescribed. She has been consuming a lot of sugar including cookies and candy. The stress of her father's anniversary worsened her food choices. Patient reports that due to anxiety and nervousness, her blood pressure that is recorded in the clinics are much higher than what it is at home.. She reports no symptoms of headache or blurred vision. Not exercising or following any particular diet. [facility] Medical History Essential hypertension Class 2 severe obesity with body mass index (BMI) of 35 to 39.9 with serious comorbidity Diabetes mellitus Surgical History History of wisdom tooth extraction History of ovarian resection Family History Father Prostate cancer, Onset Age: 60 Skin cancer Mother No problems noted. 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 1. Little interest or pleasure in doing things: not at all 2. Feeling down, depressed, or hopeless: not at all 3. Trouble falling or staying asleep, or sleeping too much: not at all 4. Feeling tired or having little energy: not at all 5. Poor appetite or overeating: not at all 6. Feeling bad about yourself - or that you are a failure or have let yourself or your family down: not at all 7. Trouble concentrating on things, such as reading the newspaper or watching television: not at all 8. Moving or speaking so slowly that other people could have noticed. Or the opposite - being so fidgety or restless that you have been moving around a lot more than usual: not at all 9. Thoughts that you would be better off or of hurting yourself in some way: not at all Total score: 0 Depression Screening Interpretation: Negative Depression Screening Done: Yes Source: Developed by Drs. Maksim Roth, Luiza Morales, Marc Chavez and colleagues, with an educational nadia from [employer]. Thrive Questionnaire Date Thrive assessed: 05/31/23 I am a: Patient What is your living situation today?: I have a steady place to live Within the past 12 months, did the food you bought not last and you didn't have the money to get more?: Never true Within the past 12 months, did you worry whether your food would run out before you got money to buy more?: Never true Do you have trouble paying for medicines?: No Do you have trouble getting transportation to medical appointments?: No Do you have trouble paying your heating and electricity bill?: No Do you have trouble taking care of your child, family member or friend?: No Do you have trouble with day-to-day activities such as bathing, preparing meals, shopping, managing finances, etc.?: No Are you currently unemployed and looking for a job?: No Are you interested in more education?: No Currently or been in a relationship where the following occur: no concerns reported THRIVE Score: 0 AUDIT C Alcohol Use Questionnaire (AUDIT-C) 1. How often do you have a drink containing alcohol?: Never Total Score: 0 RADHA-7 AMB Questionnaire RADHA-7 Date RADHA - 7 assessed: 05/31/23 Feeling nervous, anxious, or on edge: 0 = Not at all Not being able to stop or control worryin = Not at all Worrying too much about different things: 0 = Not at all Trouble relaxin = Not at all Being so restless that it is hard to sit still: 0 = Not at all Becoming easily annoyed or irritable: 0 = Not at all Feeling afraid as if something awful might happen: 0 = Not at all Total RADHA-7 score (0-4 normal; 5-9 mild; 10-14 moderate; 15-21 severe): 0 Source: Developed by Drs. Maksim Roth, Marc Hicks and colleagues, with an educational nadia from [employer]. Physical exam (Primary Care) Vital Signs: Last Vital Signs Pulse 99 05/31/23 14:24 BP 186/90 H 05/31/23 14:24 Pulse Ox 99 05/31/23 14:24 Oxygen Delivery Method Room Air 05/31/23 14:24 BMI result Body Mass Index 43.2 Tobacco/Smoking Status: Tobacco use Status Tobacco use date assessed 05/31/23 05/31/23 14:29 Patient Tobacco Use Status Never used Tobacco 05/31/23 14:29 e-Cigarette/Vaping Use Never Used 05/31/23 14:29 PHQ-9: PHQ-9 Score PHQ-9: Total score 0 05/31/23 14:38 Depression Screening Interpretation: Negative Thrive Assessment: Date of Thrive Assessment Date Thrive assessed 05/31/23 05/31/23 14:29 Currently or been in a relationship where the following occur: no concerns reported Const General: cooperative and healthy appearing Nutritional Appearance: well nourished Orientation/consciousness: patient oriented x3 Limitations: no limitations HENMT Head: Yes normal to inspection Eyes General: appearance normal, both eyes and all related structures Neck Neck: Yes normal visual inspection Chest Chest palpation & inspection: normal palpation of entire chest wall Resp Effort & Inspection: normal respiratory effort Neuro General: patient oriented x3 Results AMB Hemoglobin A1c AMB Hemoglobin A1c 8.0 % Last Edit by NATALYA Lopez on 05/31/23 14:38 Results Reviewed Results Reviewed: Laboratory Last Values Hgb A1c (Clinic) 8.0 % (4.0-6.0) H 05/31/23 14:21 Assessment and Plan Assessment & Plan (1) Anxiety: Code(s): F41.9 - Anxiety disorder, unspecified (2) Class 2 severe obesity with body mass index (BMI) of 35 to 39.9 with serious comorbidity: Code(s): E66.01 - Morbid (severe) obesity due to excess calories Plan: Patient needs to lose weight. The importance of losing weight explained in terms of her chronic conditions of diabetes and hypertension. 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 She is reluctant to change the dosage on her insulin medications. Patient promises to eat healthier and bring the A1c down. (4) Essential hypertension: Code(s): I10 - Essential (primary) hypertension Plan: Blood pressure in the clinic is markedly elevated. She is to maintain a log and reported through the portal. Medications maybe need to change. However patient is confident that her blood pressure is in normal range at home. Will share her home blood pressure readings. Orders: Orders AMB Hemoglobin A1c 05/31/23 E11.9 - Type 2 diabetes mellitus without complications Coding Level of Care Code Est Pt Level 4 (03407) Diagnoses Anxiety F41.9 Class 2 severe obesity with body mass index (BMI) of 35 to 39.9 with serious comorbidity E66.01 Type 2 diabetes mellitus without complication, with long-term current use of insulin E11.9; Z79.4 Diabetes mellitus type: type 2 Diabetes mellitus prison insulin use: with director long term care use Diabetes mellitus complication status: without complication Essential hypertension I10
[2023-05-31 14:24] VITALS: BP 186/90; PULSE 99; O2SAT 99; BMI 43.2
== END 2023-05-31 15:27 | disposition home or self-care (01) ==
PROVIDERS: PCP Internal Medicine; Visit Provider Internal Medicine
DX: E11.9 Type 2 diabetes mellitus without complications (principal)
CPT/HCPCS: 83036; 99214

== ENCOUNTER 2023-09-13 14:38 | Outpatient (AMB) | payer BC, SELFPAY ==
--- NOTE | 2023-09-13 14:59 | A.OFFPC_ITS ---
Vital Signs 09/13/23 15:00 Height 5 ft 8 in Weight 283 lb 4 oz BMI 43.1 BP 130/70 Blood Pressure Location Lt brachial Position Sitting Pulse 89 Pulse Source Pulse Oximeter Pulse Oximetry (%) 98 Oxygen Delivery Method Room Air Intake Visit Reasons: 3 month f/u Intake Note: Patient is here to follow up on DM, HTN. Tugboat Dispatcher Required: No Surgical Pathologist: Not Required per policy Accompanied by: Self / Same As Patient Allergies No Known Allergies Allergy (Verified 09/16/23 10:26) Medication List - Last Reconciled 09/16/23 by Justice Lizarraga MD amlodipine 10 mg PO DAILY aspirin 81 mg PO DAILY bisacodyl (Dulcolax (bisacodyl)) 20 mg (4 x 5 mg) PO ONCE 1 day insulin glargine U-300 conc (Toujeo Max U-300 SoloStar) 76 units (0.2533 mL) subcut BEDTIME insulin lispro (Humalog KwikPen (U-100) Insulin) 20 units (0.2 mL) subcut TID 90 days losartan 100 mg PO DAILY multivitamin 1 tab PO DAILY pen needle, diabetic (Comfort EZ Pen [place]) As directed polyethylene glycol 3350 (Miralax) 238 grams PO ONCE propranolol 10 mg PO BID PRN simvastatin 10 mg PO BEDTIME Tobacco use date assessed: 09/13/23 Dental Screening Dental Screen Date: 05/31/23 HPI 3 month f/u HPI Details 48 yr old female presents to the office to discuss her chronic medical issues. 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 Not checking her blood sugars regularly. Not following any particular diet. Not exercising. [facility] Medical History Essential hypertension Class 2 severe obesity with body mass index (BMI) of 35 to 39.9 with serious comorbidity Diabetes mellitus Surgical History History of wisdom tooth extraction History of ovarian resection Family History Father Prostate cancer, Onset Age: 60 Skin cancer Mother No problems noted. 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 Maksim Roth, Luiza Morales, Marc Chavez and colleagues, with an educational nadia from [employer]. Physical exam (Primary Care) Vital Signs: Last Vital Signs Pulse 89 09/13/23 15:00 BP 130/70 09/13/23 15:00 Pulse Ox 98 09/13/23 15:00 Oxygen Delivery Method Room Air 09/13/23 15:00 Care Plan Goal for BP management: BP is in range. Continue current medications. BMI result Body Mass Index 43.1 BMI Assessment/Plan discussion: High (one pound per week weight loss suggested.) BMI High, discussed plan: lifestyle, weight reduction and dietary Tobacco/Smoking Status: Tobacco use Status Tobacco use date assessed 09/13/23 09/13/23 15:09 Patient Tobacco Use Status Never used Tobacco 09/13/23 15:09 e-Cigarette/Vaping Use Never Used 09/13/23 15:09 Thrive Assessment: Date of Thrive Assessment Date Thrive assessed 05/31/23 09/13/23 15:09 Const General: cooperative and healthy appearing Nutritional Appearance: well nourished Orientation/consciousness: patient oriented x3 Limitations: no limitations HENMT Head: Yes normal to inspection Eyes General: appearance normal, both eyes and all related structures Neck Neck: Yes normal visual inspection Chest Chest palpation & inspection: normal palpation of entire chest wall Resp Effort & Inspection: normal respiratory effort Neuro General: patient oriented x3 Results AMB Hemoglobin A1c AMB Hemoglobin A1c 8.4 % Last Edit by NATALYA Lopez on 09/13/23 15:18 Results Reviewed Results Reviewed: Laboratory Last Values Hgb A1c (Clinic) 8.4 % (4.0-6.0) H 09/13/23 14:59 Assessment and Plan Assessment & Plan (1) Diabetes mellitus: Code(s): E11.9 - Type 2 diabetes mellitus without complications Qualifiers: Diabetes mellitus type: type 2 Diabetes mellitus detention insulin use: with termite control 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 CGM will be ordered. Patient was advised to titrate her blood sugars. To increase by five units, the long acting insulin dose till the FBS is 150 or less. To increase the short acting blood sugar till 2 hr post prandial is less than 200. To eat her meals at regular intervals with snack in between. (2) Class 2 severe obesity with body mass index (BMI) of 35 to 39.9 with serious comorbidity: Code(s): E66.01 - Morbid (severe) obesity due to excess calories Plan: Counselling on the importance of diet and exercise done. (3) Essential hypertension: Code(s): I10 - Essential (primary) hypertension Plan: BP is in range. Continue current medications. (4) Anxiety: Code(s): F41.9 - Anxiety disorder, unspecified Plan: Condition is stable. Propanolol is helping in this matter. Orders: Orders AMB Hemoglobin A1c 09/13/23 E11.9 - Type 2 diabetes mellitus without complications, Z79.4 - FPC (current) use of insulin Coding Level of Care Code Est Pt Level 4 (53772) Diagnoses Type 2 diabetes mellitus without complication, with long-term current use of insulin E11.9; Z79.4 Diabetes mellitus type: type 2 Diabetes mellitus detention insulin use: with termite control representative use Diabetes mellitus complication status: without complication Class 2 severe obesity with body mass index (BMI) of 35 to 39.9 with serious comorbidity E66.01 Essential hypertension I10 Anxiety F41.9
[2023-09-13 15:00] VITALS: BP 130/70; PULSE 89; O2SAT 98; BMI 43.1
== END 2023-09-13 15:32 | disposition home or self-care (01) ==
PROVIDERS: PCP Internal Medicine; Visit Provider Internal Medicine
DX: E11.9 Type 2 diabetes mellitus without complications (principal); Z79.4 Long term (current) use of insulin
CPT/HCPCS: 83036; 99214

== ENCOUNTER 2023-12-27 14:57 | Outpatient (AMB) | payer BC, SELFPAY ==
--- NOTE | 2023-12-27 15:00 | A.OFFPC_ITS ---
Vital Signs 12/27/23 15:05 Height 5 ft 8 in Weight 286 lb BMI 43.5 BP 172/100 H Blood Pressure Location Lt brachial Position Sitting Pulse 97 Pulse Source Pulse Oximeter Pulse Oximetry (%) 98 Oxygen Delivery Method Room Air Intake Visit Reasons: 3mth f/u Statistics Intern Required: No Accompanied by: Self / Same As Patient Allergies No Known Allergies Allergy (Verified 12/28/23 07:36) Medication List - Last Reconciled 12/28/23 by Justice Lizarraga MD amlodipine 10 mg PO DAILY aspirin 81 mg PO DAILY bisacodyl (Dulcolax (bisacodyl)) 20 mg (4 x 5 mg) PO ONCE 1 day blood sugar diagnostic ([employer] Ultra Test strips) test blood sugar three time daily blood-glucose meter ([employer] Ultra2 Meter) As directed blood-glucose meter,continuous (Dexcom G7 Signal Fitter) As directed blood-glucose sensor (Dexcom G7 Sensor device) As directed insulin lispro (Humalog KwikPen (U-100) Insulin) 30 units (0.3 mL) subcut TID 90 days lancets (EmployInsightTouch UltraSoft 2 Lancet) test blood sugar three time daily losartan 100 mg PO DAILY multivitamin 1 tab PO DAILY pen needle, diabetic (Comfort EZ Pen Bernice) As directed polyethylene glycol 3350 (Miralax) 238 grams PO ONCE propranolol 10 mg PO BID PRN simvastatin 10 mg PO BEDTIME Toujeo Max U-300 SoloStar (insulin glargine U-300 conc) 100 units (0.3333 mL) subcut BEDTIME 90 days NS Tobacco use date assessed: 12/27/23 Dental Screening Dental Screen Date: 05/31/23 Did you have a dental visit in the last 12 months?: Yes Did you have a dental problem in the last 6 months where you did not have access to dental care?: No Was dental information given to patient?: Patient has dentist HPI 3mth f/u HPI Details 48-year-old female presents to the offic e to discuss her chronic medical conditions. Patient is enjoying her summer vacation and is much relaxed. 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 Since last office visit, patient has been trying to get a continues glucose monitor. She has increased the basal insulin 206 units at night. Continues to take 30 units 3 times a day of the short-acting insulin. Sugars are reasonably controlled. Compliant with her blood pressure medications. Blood pressure is recorded at home are consistently in the 130/80 range. Reports no symptoms of headaches, shortness of breath, nausea or vomiting. [facility] Medical History Essential hypertension Class 2 severe obesity with body mass index (BMI) of 35 to 39.9 with serious comorbidity Diabetes mellitus Surgical History History of wisdom tooth extraction History of ovarian resection Family History Father Prostate cancer, Onset Age: 60 Skin cancer Mother No problems noted. 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 1. Little interest or pleasure in doing things: not at all 2. Feeling down, depressed, or hopeless: not at all 3. Trouble falling or staying asleep, or sleeping too much: not at all 4. Feeling tired or having little energy: not at all 5. Poor appetite or overeating: not at all 6. Feeling bad about yourself - or that you are a failure or have let yourself or your family down: not at all 7. Trouble concentrating on things, such as reading the newspaper or watching television: not at all 8. Moving or speaking so slowly that other people could have noticed. Or the opposite - being so fidgety or restless that you have been moving around a lot more than usual: not at all 9. Thoughts that you would be better off or of hurting yourself in some way: not at all Total score: 0 Depression Screening Interpretation: Negative Depression Screening Done: Yes Source: Developed by Luiza Baird Kurt Kroenke and colleagues, with an educational nadia from [employer]. Thrive Questionnaire Date Thrive assessed: 12/27/23 I am a: Patient What is your living situation today?: I have a steady place to live Within the past 12 months, did the food you bought not last and you didn't have the money to get more?: Never true Within the past 12 months, did you worry whether your food would run out before you got money to buy more?: Never true Do you have trouble paying for medicines?: No Do you have trouble getting transportation to medical appointments?: No Do you have trouble paying your heating and electricity bill?: No Do you have trouble taking care of your child, family member or friend?: No Do you have trouble with day-to-day activities such as bathing, preparing meals, shopping, managing finances, etc.?: No Are you currently unemployed and looking for a job?: No Are you interested in more education?: No Please select the resources that you would like help with: None Currently or been in a relationship where the following occur: No concerns reported THRIVE Score: 0 AUDIT C Alcohol Use Questionnaire (AUDIT-C) 1. How often do you have a drink containing alcohol?: Never Total Score: 0 RADHA-7 AMB Questionnaire RADHA-7 Date RADHA - 7 assessed: 12/27/23 Feeling nervous, anxious, or on edge: 0 = Not at all Not being able to stop or control worryin = Not at all Worrying too much about different things: 0 = Not at all Trouble relaxin = Not at all Being so restless that it is hard to sit still: 0 = Not at all Becoming easily annoyed or irritable: 0 = Not at all Feeling afraid as if something awful might happen: 0 = Not at all Total RADHA-7 score (0-4 normal; 5-9 mild; 10-14 moderate; 15-21 severe): 0 Source: Developed by Luiza Baird Kurt Kroenke and colleagues, with an educational nadia from [employer]. Physical exam (Primary Care) Vital Signs: Last Vital Signs Pulse 97 12/27/23 15:05 BP 172/100 H 12/27/23 15:05 Pulse Ox 98 12/27/23 15:05 Oxygen Delivery Method Room Air 12/27/23 15:05 Care Plan Goal for BP management: Blood pressure is elevated. This is due to anxiety. Continue medications at the same dosage. BMI result Body Mass Index 43.5 BMI Assessment/Plan discussion: High (1 lb per week weight loss suggested) BMI High, discussed plan: lifestyle, weight reduction and dietary Tobacco/Smoking Status: Tobacco use Status Tobacco use date assessed 12/27/23 12/27/23 15:07 Patient Tobacco Use Status Never used Tobacco 12/27/23 15:01 e-Cigarette/Vaping Use Never Used 12/27/23 15:01 PHQ-9: PHQ-9 Score PHQ-9: Total score 0 12/27/23 15:36 Depression Screening Interpretation: Negative Thrive Assessment: Date of Thrive Assessment Date Thrive assessed 12/27/23 12/27/23 15:10 Currently or been in a relationship where the following occur: No concerns reported Const General: cooperative and healthy appearing Nutritional Appearance: well nourished Orientation/consciousness: patient oriented x3 Limitations: no limitations HENMT Head: Yes normal to inspection Eyes General: appearance normal, both eyes and all related structures Neck Neck: Yes normal visual inspection Chest Chest palpation & inspection: normal palpation of entire chest wall Resp Effort & Inspection: normal respiratory effort Neuro General: patient oriented x3 Results AMB Hemoglobin A1c AMB Hemoglobin A1c 7.0 % Last Edit by NATALYA Ireland on 12/27/23 15 :34 Results Reviewed Results Reviewed: Laboratory Last Values Hgb A1c (Clinic) 7.0 % (4.0-6.0) H 12/27/23 15:17 Assessment and Plan Assessment & Plan (1) Diabetes mellitus: Code(s): E11.9 - Type 2 diabetes mellitus without complications Qualifiers: Diabetes mellitus complication status: without complication Diabetes mellitus halfway insulin use: with halfway use Diabetes mellitus type: type 2 Qualified Code(s): E11.9 - Type 2 diabetes mellitus without complications; Z79.4 - MCC (current) use of insulin Plan: A1c is 7.0. Blood sugars are under reasonable control. Continue medications at the same dosage. Patient expressed difficulty getting prescriptions at the dose and quantity that has been prescribed. I advised her that I will speak to the pharmacist next time this discrepancy happens (2) Essential hypertension: Code(s): I10 - Essential (primary) hypertension Plan: Patient records normal blood pressure at home, but is elevated when she comes to a doctor's office. Continue her prescriptions without any change in dosage or frequency. (3) Class 2 severe obesity with body mass index (BMI) of 35 to 39.9 with serious comorbidity: Code(s): E66.01 - Morbid (severe) obesity due to excess calories Plan: Counseling on the importance of diet and exercise done. 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 Liver Panel 12/27/23 E11.9 - Type 2 diabetes mellitus without complications, Z79.4 - MCC (current) use of insulin Thyroid Stimulating Hormone 12/27/23 E11.9 - Type 2 diabetes mellitus without complications, Z79.4 - MCC (current) use of insulin Coding Level of Care Code Est Pt Level 4 (52044) Complex EM visit Add On G2211 Diagnoses Type 2 diabetes mellitus without complication, with long-term current use of insulin E11.9; Z79.4 Diabetes mellitus complication status: without complication Diabetes mellitus halfway insulin use: with halfway use Diabetes mellitus type: type 2 Essential hypertension I10 Class 2 severe obesity with body mass index (BMI) of 35 to 39.9 with serious comorbidity E66.01
[2023-12-27 15:05] VITALS: BP 172/100; PULSE 97; O2SAT 98; BMI 43.5
== END 2023-12-27 16:04 | disposition home or self-care (01) ==
PROVIDERS: PCP Internal Medicine; Visit Provider Internal Medicine
DX: E11.9 Type 2 diabetes mellitus without complications (principal)
CPT/HCPCS: 83036; 99214

== ENCOUNTER 2024-04-16 15:06 | Outpatient (AMB) | payer BC, SELFPAY ==
--- NOTE | 2024-04-16 15:18 | MHC.PC.OV ---
Vital Signs 04/16/24 15:20 Height 5 ft 8 in Weight 299 lb 8 oz BMI 45.5 BP 140/86 H Blood Pressure Location Lt brachial Position Sitting Pulse 94 Pulse Source Pulse Oximeter Pulse Oximetry (%) 98 Oxygen Delivery Method Room Air Intake Visit Reasons: 3 month follow up Intake Note: Patient is here to follow up on DM, HTN. 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 Required: No Clother In: Not Required per policy Accompanied by: Self / Same As Patient Allergies No Known Allergies Allergy (Verified 04/16/24 17:04) Medication List - Last Reconciled 04/16/24 by Cadence Abreu PA-C amlodipine 10 mg PO DAILY aspirin 81 mg PO DAILY bisacodyl (Dulcolax (bisacodyl)) 20 mg (4 x 5 mg) PO ONCE 1 day blood sugar diagnostic (PingTankuch Ultra Test strips) test blood sugar three time daily blood-glucose meter (8thBridge Ultra2 Meter) As directed blood-glucose meter,continuous (DexMeditech Solution G7 Pediatrician Active Practice) As directed blood-glucose sensor (Dexcom G7 Sensor device) As directed insulin lispro (Humalog KwikPen (U-100) Insulin) 30 units (0.3 mL) subcut TID 90 days lancets (PingTankuch UltraSoft 2 Lancet) test blood sugar three time daily losartan 100 mg PO DAILY multivitamin 1 tab PO DAILY pen needle, diabetic (Comfort EZ Pen [place]) As directed polyethylene glycol 3350 (Miralax) 238 grams PO ONCE propranolol 10 mg PO BID PRN simvastatin 10 mg PO BEDTIME tirzepatide (Mounjaro) 2.5 mg (0.5 mL) subcut QWEEK Toujeo Max U-300 SoloStar (insulin glargine U-300 conc) 106 units (0.3533 mL) subcut BEDTIME 90 days NS Tobacco use date assessed: 04/16/24 Dental Screening Dental Screen Date: 05/31/23 COUNTS INCLUDE 234 BEDS AT THE [facility] Medical History (Updated 04/16/24 @ 17:23 by Cadence Abreu PA-C) Hyperlipidemia Follow-up exam, 3-6 months since previous exam Essential hypertension Class 2 severe obesity with body mass index (BMI) of 35 to 39.9 with serious comorbidity Diabetes mellitus Surgical History History of wisdom tooth extraction History of ovarian resection Family History Father Prostate cancer, Onset Age: 60 Skin cancer Mother No problems noted. 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 How often do you have six or more drinks on one occasion?: Never Total Score: 0 RADHA-7 AMB Questionnaire RADHA-7 Date RADHA - 7 assessed: 12/27/23 Source: Developed by Drs. Maksim Roth, Luiza Morales, Marc Chavez and colleagues, with an educational nadia from [employer]. Physical exam (Primary Care) Vital Signs: Last Vital Signs Pulse 94 04/16/24 15:20 BP 140/86 H 04/16/24 15:20 Pulse Ox 98 04/16/24 15:20 Oxygen Delivery Method Room Air 04/16/24 15:20 BMI result Body Mass Index 45.5 Tobacco/Smoking Status: Tobacco use Status Tobacco use date assessed 04/16/24 04/16/24 15:19 Patient Tobacco Use Status Never used Tobacco 04/16/24 15:19 e-Cigarette/Vaping Use Never Used 04/16/24 15:19 Thrive Assessment: Date of Thrive Assessment Date Thrive assessed 12/27/23 04/16/24 15:19 Results AMB Hemoglobin A1c AMB Hemoglobin A1c 7.0 % Last Edit by NATALYA Lopez on 04/16/24 15:34 Results Reviewed Results Reviewed: Laboratory Last Values Hgb A1c (Clinic) 7.0 % (4.0-6.0) H 04/16/24 15:17 Coding Level of Care Code Est Pt Level 4 (79377) Complex EM visit Add On G2211 Diagnoses Follow-up exam, 3-6 months since previous exam Z09 Type 2 diabetes mellitus without complication, with long-term current use of insulin E11.9; Z79.4 Diabetes mellitus complication status: without complication Diabetes mellitus assisted insulin use: with termite control servicer use Diabetes mellitus type: type 2 Essential hypertension I10 Class 2 severe obesity with body mass index (BMI) of 35 to 39.9 with serious comorbidity E66.01 Hyperlipidemia E78.5 Anxiety F41.9 Assessment & Plan Assessment & Plan (1) Follow-up exam, 3-6 months since previous exam: Code(s): Z09 - Encounter for follow-up examination after completed treatment for conditions other than malignant neoplasm Category: Medical Plan: see below (2) Diabetes mellitus: Code(s): E11.9 - Type 2 diabetes mellitus without complications Category: Medical Qualifiers: Diabetes mellitus complication status: without complication Diabetes mellitus termite control servicer insulin use: with assisted use Diabetes mellitus type: type 2 Qualified Code(s): E11.9 - Type 2 diabetes mellitus without complications; Z79.4 - senior care (current) use of insulin Plan: see below (3) Essential hypertension: Code(s): I10 - Essential (primary) hypertension Category: Medical Plan: see below (4) Class 2 severe obesity with body mass index (BMI) of 35 to 39.9 with serious comorbidity: Code(s): E66.01 - Morbid (severe) obesity due to excess calories Category: Medical Plan: see below (5) Hyperlipidemia: Code(s): E78.5 - Hyperlipidemia, unspecified Category: Medical Plan: see below (6) Anxiety: Code(s): F41.9 - Anxiety disorder, unspecified Category: Medical Plan: see below Plan Plan Diabetes - Continue taking Toujeo as prescribed. - Start Monjaro at 0.25 mg and monitor blood glucose closely. - Switch from Humalog to NovoLog when current supply is depleted. - Complete blood work within the next week to monitor liver function and diabetes control. Hypertension: - Continue Amlodipine and Losartan. Reassess blood pressure control at the next visit. Hyperlipidemia: - Continue statin therapy. Complete lab work to assess liver function due to medication regimen. Anxiety: - Continue Propranolol as needed for anticipatory anxiety. 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 Panel Fast 04/16/24 Z00.00 - Encounter for general adult medical examination without abnormal findings Lipid Panel 04/16/24 Z00.00 - Encounter for general adult medical examination without abnormal findings Liver Panel 04/16/24 E11.9 - Type 2 diabetes mellitus without complications, E66.01 - Morbid (severe) obesity due to excess calories, I10 - Essential (primary) hypertension, Z09 - Encounter for follow-up examination after completed treatment for conditions other than malignant neoplasm, Z79.4 - senior care (current) use of insulin Vitamin B12 and Folate 04/16/24 R79.89 - Other specified abnormal findings of blood chemistry TSH reflex Free T4 04/16/24 Z00.00 - Encounter for general adult medical examination without abnormal findings C Reactive Protein 04/16/24 E11.9 - Type 2 diabetes mellitus without complications, E66.01 - Morbid (severe) obesity due to excess calories, I10 - Essential (primary) hypertension, Z09 - Encounter for follow-up examination after completed treatment for conditions other than malignant neoplasm, Z79.4 - senior care (current) use of insulin Microalbumin, Random (w Creat) 04/16/24 E11.9 - Type 2 diabetes mellitus without complications, 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 She has been on insulin therapy, specifically 106 units of Toujeo at bedtime and Humalog, taking 30 units three times daily. Recently, it has been communicated that Humalog will not be covered, insurance recommending a switch to NovoLog. Although patient requesting starting Mounjaro as she has discussed this with Dr. Lizarraga in the past and is also interested in losing weight. Her blood sugar levels have fluctuated, ranging typically between 120 to 160 mg/dL, with occasional lower readings such as in the 60s. These drops can cause symptomatic chilling sensations. Jael reports frequently checking her blood sugar levels, typically three times daily at different times. Additionally, the patient's HbA1c remains stable at 7.0%. A recent diabetic eye exam revealed diabetic macular edema and retinopathy, but no treatment is currently required. She reports she is following up regularly with emergency services director. She also has hypertension, managed with Amlodipine and Losartan, with her last recorded blood pressure being 140/86 mmHg, indicating better control. Additionally, she adheres to statin therapy for hyperlipidemia, which requires monitoring for potential liver issues. Episodic anxiety managed with Propranolol as needed. She does not currently need any medication refills. Patient reports she is up-to-date on the flu vaccine for this year. Patient had a mammogram 04/25/2024 and an MRI of both breasts on 10/10/2023 which revealed benign lump to left breast otherwise no other acute processes. It was recommended patient had annual mammograms and breast MRIs. Patient reports she will call for her mammogram for this year. Patient reports she had a Pap smear on 11/[address] Roberson which was negative. She reports she will call him for a follow-up appointment. She denies any recent colonoscopy despite age and family history of breast cancer considerations. 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 - Exercise: Engages in a cardiac-based exercise regimen twice weekly and walks regularly. - Diet: Consumes three meals daily, generally low in carbohydrates, with salads for lunch; snacks on fruits, yogurt, and occasionally nuts. Minimizes intake of candy and chocolate. - Functional status: Able to perform regular activities. - Health habits: Scheduling medical visits and medication adherence noted. - Consumes a typical diet with a light lunch, usually a salad, due to limited lunch breaks, and eats dinner between 5:00 to 6:00 PM. - Exercises twice a week, engaging in cardiovascular activities and walking. - Denies tobacco or alcohol use. - No current family planning concerns mentioned. - Has been experiencing a stable weight over the past year with concerns of menopause contributing to weight changes. Review of Systems - General: Reports anxiety-related to stressful events. - Eyes: Reports regular annual ophthalmology visits without noted complications. - Musculoskeletal: Denies inability to perform regular activities. - Nutrition: Reports three meals a day; minimized carbohydrate intake. - General: Denies lightheadedness, dizziness, or headaches during work. - Endocrine: Reports occasional chills with blood sugar drops. - Ophthalmologic: Denies any problems with night driving or vision changes. Physical Exam Appearance: Alert. Oriented X3. No acute distress. Head: Normal external exam. Normocephalic. Atraumatic. No Valenzuela signs noted. No raccoon eyes noted. Eyes: Pupils are equal, round, and reactive to light. Extraocular movements intact. Conjunctiva and sclera normal. Eyelids normal. Ears: External auditory canal normal. Tympanic membranes normal. Throat: Pharynx normal. Uvula midline. Moist mucous membranes. No trismus noted. No drooling noted. No muffled voice noted. Neck: Normal inspection. Neck supple. Full range of motion. No adenopathy. Thyroid Normal. No meningeal signs. No neck mass noted. Cardiovascular: Normal heart rate and rhythm. Heart sound normal. No murmurs noted. Pulses normal throughout. Respiratory: No respiratory distress. Painless inspiration. Breath sounds normal. No wheezes/rales/rhonchi noted. Chest nontender. No accessory muscle usage noted or decreased air movement noted. Abdomen: Soft and nontender. Bowel sounds normal in all 4 quadrants. No distention noted. No organomegaly noted. No visible injury noted. Back: No costovertebral angle tenderness. Full range of motion noted. Skin: Skin warm and dry. Normal skin color. Normal skin turgor. No rashes/lesions/lacerations noted. Extremities: No lower extremity edema. Extremities exhibit normal range of motion. Extremities nontender. Neuro: Oriented X 3. No motor deficit. No sensory deficit. Reflexes normal. Sensation intact. Results - Labs: HbA1c 7%, indicating diabetes control status. Plan: Patient was informed and verbally consented to the use of an ambient scribe for clinic note documentation during this visit. Discussion Notes I thoroughly discussed with the patient the role of Monjaro as an adjunctive therapy for diabetes management, emphasizing that it is not a replacement for current insulin therapy. The patient was informed about potential side effects, particularly gastrointestinal disturbances, and strategies to manage these by initiating the medication at a convenient time. We agreed on the timing after the holiday period to minimize work interference. We reviewed the patient's other chronic conditions, specifically hypertension and hyperlipidemia, and confirmed ongoing medication plans. I provided reassurance regarding anxiety management with Propranolol as needed and encouraged scheduling blood work to evaluate metabolic parameters, including liver function, to avoid potential complications from her current medication regimen. In our discussion, I addressed the potential switch from Humalog Lispro to Munjaro, considering its benefits, pending insurance approval. We talked about her steady A1c, indicating good diabetes management, yet her daily glucose readings were addressed with slight concern for occasional hypoglycemia. We discussed preventative health, highlighting the absence of a colonoscopy despite age and family history, while ensuring diabetes-related eye issues remain stable. Continued screening for breast cancer, given family history, was advised. We also discussed maintaining her current exercise regimen and being mindful of diet considering her meal timing constraints. Future visits should consider her menopausal symptoms and their impact on weight. Plan Diabetes - Continue taking Toujeo as prescribed. - Start Monjaro at 0.25 mg after Deric and monitor blood glucose closely. - Switch from Humalog to NovoLog when current supply is depleted. - Complete blood work within the next week to monitor liver function and diabetes control. - Discussion with the patient highlighted Monjaro as an additional medication without replacing existing insulin therapy. The introduction of Monjaro is expected to reduce stomach motility and decrease food intake due to nausea. The patient acknowledges that this can cause initial gastrointestinal upset when the dosage is adjusted. She plans to commence this medication during a period when she is not working to manage side effects effectively. Hypertension: - Continue Amlodipine and Losartan. Reassess blood pressure control at the next visit. Hyperlipidemia: - Continue statin therapy. Complete lab work to assess liver function due to medication regimen. Anxiety: - Continue Propranolol as needed for anticipatory anxiety. Preventive Care: - Perform blood work within a week to facilitate comprehensive evaluation of the current medication impacts. - During the visit, a diabetic foot examination was performed to check sensation and monitor for neuropathy, with emphasis on regular foot care to prevent complications. - Follow a balanced diet and maintain regular exercise routines. - Perform regular foot care with podiatry to prevent diabetic-related foot complications. - Schedule breast and cervical cancer screenings as discussed. - Maintain regular follow-ups with coding compliance specialist for diabetic retinopathy. - Engage in regular physical activity and maintain balanced meals throughout the day. Patient was informed and verbally consented to the use of an ambient scribe for clinic note documentation during this visit.
[2024-04-16 15:20] VITALS: BP 140/86; PULSE 94; O2SAT 98; BMI 45.5
== END 2024-04-16 16:06 | disposition home or self-care (01) ==
PROVIDERS: PCP Internal Medicine; Visit Provider Physician Assistant Medical
DX: E11.9 Type 2 diabetes mellitus without complications (principal); Z79.4 Long term (current) use of insulin

== ENCOUNTER → 2024-04-16 15:06 | Outpatient (BNVA) | payer BC, SELFPAY | PROVIDERS: PCP Internal Medicine; Visit Provider Physician Assistant Medical | DX: E11.9 Type 2 diabetes mellitus without complications (principal); I10 Essential (primary) hypertension; E66.01 Morbid (severe) obesity due to excess calories; Z68.42 Body mass index [BMI] 45.0-49.9, adult; E78.5 Hyperlipidemia, unspecified; F41.9 Anxiety disorder, unspecified; Z79.4 Long term (current) use of insulin; Z79.899 Other long term (current) drug therapy | CPT/HCPCS: 83036 ==

== ENCOUNTER 2024-08-26 08:50 | Outpatient (REF) | payer BC, SELFPAY ==
[2024-08-26 09:05] LABS: MANUAL DIFF FLAG NO
[2024-08-26 10:07] LABS: Basophils Percent Auto 0.5 % (0-2); Eosinophils Absolute Auto 0.2 X10*3/uL (0.0-0.4); Eosinophils Percent Auto 1.9 % (0-4); Hematocrit 41.5 % (37.0-47.0); Hemoglobin 14.1 g/dl (12.0-16.0); Imm Gran Abs Auto 0.03 X10*3/uL (0.00-0.03); Imm Gran Pct Auto 0.4 % (0.0-0.4); Lymphocytes Absolute Auto 1.6 X10*3/uL (1.2-4.9); Lymphocytes Percent Auto 19.1 % (20-40); Mean Corpuscular Hemoglobin 30.1 pg (27.0-33.0); Mean Corpuscular Volume 88.7 fL (80.0-98.0); Mean Platelet Volume 10.7 fL (9.4-12.3); Monocytes Absolute Auto 0.4 X10*3/uL (0.1-1.2); Monocytes Percent Auto 4.5 % (2-11); Neutrophils Absolute Auto 6.2 x10*3/uL (2.0-8.3); Neutrophils Percent Auto 73.6 % (45-73); Platelet Count 268 X10*3/uL (160-400); Red Blood Count 4.68 X10*6/uL (4.20-5.50); Red Cell Distribution Width 13.6 % (11.0-16.0); White Blood Count 8.4 X10*3/uL (4.8-10.8)
[2024-08-26 10:28] LABS: Alanine Aminotransferase 54 U/L (0-31); Albumin Level 4.2 g/dL (3.5-5.0); Anion Gap 13 (12-20); Aspartate Amino Transferase 35 U/L (5-31); Bilirubin Direct 0.2 mg/dL (0.0-0.5); Bilirubin Total 0.6 mg/dL (0.0-1.0); Blood Urea Nitrogen 18 mg/dL (9-16); C Reactive Protein 0.32 mg/dL (< or = 0.50); Calcium 9.3 mg/dL (8.4-10.2); Carbon Dioxide 27 mmol/L (22-29); Chloride 104 mmol/L (96-108); Cholesterol 163 mg/dL (<200); Estimated Glomerular Filt Rate > 60; Glucose Fasting 173 mg/dL (60-99); HDL Cholesterol 42 mg/dL (>40); LDL Cholesterol Calculated 89 mg/dL (<100); Potassium 4.3 mmol/L (3.3-5.1); Sodium 140 mmol/L (135-145); Total Protein 7.5 g/dL (6.5-8.0); Triglycerides 161 mg/dL (<150)
[2024-08-26 10:51] LABS: Alkaline Phosphatase 95 U/L (39-117); TSH reflex Free T4 1.93 uIU/mL (0.32-4.0); Thyroid Stimulating Hormone 1.93 uIU/mL (0.32-4.0); Vitamin D 25-OH Total 33.1 ng/mL (>30)
[2024-08-26 10:52] LABS: Erythrocyte Sedimentation Rate 12 MM/HR (0-20)
[2024-08-26 10:54] LABS: Folate 14.1 ng/mL (> or = 4.0); Vitamin B12 527 pg/mL (200-900)
[2024-08-26 10:55] LABS: Creatinine Urine 366.08 mg/dL
[2024-08-26 11:06] LABS: Microalbum/Creatinine Ratio Ur 150.7 ug/mg cr (<30)
== END 2024-08-26 08:51 | disposition home or self-care (01) ==
LOC: HO.LAB 08:50
PROVIDERS: Physician Assistant Medical; PCP Internal Medicine; Visit Provider Internal Medicine
DX: Z00.00 Encounter for general adult medical examination without abnormal findings (principal); R79.89 Other specified abnormal findings of blood chemistry; E11.9 Type 2 diabetes mellitus without complications; Z79.4 Long term (current) use of insulin; Z09 Encounter for follow-up examination after completed treatment for conditions other than malignant neoplasm; I10 Essential (primary) hypertension; E66.01 Morbid (severe) obesity due to excess calories
CPT/HCPCS: 36415; 80053; 80061; 80076; 82043; 82248; 82306; 82570; 82607; 82746; 84443; 85025; 85027; 85652; 86140

== ENCOUNTER 2024-08-28 09:26 | Outpatient (AMB) | payer BC, SELFPAY ==
--- NOTE | 2024-08-28 09:49 | MHC.PC.OV ---
Vital Signs 08/28/24 09:50 Height 5 ft 8 in Weight 288 lb 2 oz BMI 43.8 BP 152/90 H Blood Pressure Location Lt brachial Position Sitting Pulse 91 Pulse Source Pulse Oximeter Temp 97.5 F Temp Source Temporal Artery Scan Pulse Oximetry (%) 99 Oxygen Delivery Method Room Air Intake Visit Reasons: 3mth f/u Intake Note: Patient is here to follow up on DM, HLD, HTN. 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 Required: No Coagulating Drying Supervisor: Not Required per policy Accompanied by: Self / Same As Patient Allergies No Known Allergies Allergy (Verified 08/28/24 09:50) Medication List - Last Reconciled 08/28/24 by Justice Lizarraga MD amlodipine 10 mg PO DAILY aspirin 81 mg PO DAILY bisacodyl (Dulcolax (bisacodyl)) 20 mg (4 x 5 mg) PO ONCE 1 day blood sugar diagnostic ([employer] Ultra Test strips) TEST BLOOD SUGAR THREE TIME DAILY blood-glucose meter ([employer] Ultra2 Meter) As directed blood-glucose sensor ([employer] G7 Sensor device) Test blood sugar three times a da blood-glucose,ticket collector or usher,cont (Dexcom G7 Bag Sewer) As directed insulin aspart U-100 (Novolog FlexPen U-100 Insulin aspart) 30 units (0.3 mL) subcut TID 90 days lancets (ZapHourTouch UltraSoft 2 Lancet) test blood sugar three time daily losartan 100 mg PO DAILY multivitamin 1 tab PO DAILY pen needle, diabetic (Comfort EZ Pen [place]) As directed polyethylene glycol 3350 (Miralax) 238 grams PO ONCE propranolol 10 mg PO BID PRN simvastatin 10 mg PO BEDTIME tirzepatide (Mounjaro) 2.5 mg (0.5 mL) subcut QWEEK Toujeo Max U-300 SoloStar (insulin glargine U-300 conc) 106 units (0.3533 mL) subcut BEDTIME 90 days NS Tobacco use date assessed: 08/28/24 Dental Screening Dental Screen Date: 08/28/24 Did you have a dental visit in the last 12 months?: Yes Did you have a dental problem in the last 6 months where you did not have access to dental care?: No Was dental information given to patient?: Patient has dentist [facility] Medical History (Updated 04/16/24 @ 17:23 by Cadence Abreu PA-C) Hyperlipidemia Follow-up exam, 3-6 months since previous exam Essential hypertension Class 2 severe obesity with body mass index (BMI) of 35 to 39.9 with serious comorbidity Diabetes mellitus Surgical History History of wisdom tooth extraction History of ovarian resection Family History Father Prostate cancer, Onset Age: 60 Skin cancer Mother No problems noted. 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 1. Little interest or pleasure in doing things: not at all 2. Feeling down, depressed, or hopeless: not at all 3. Trouble falling or staying asleep, or sleeping too much: not at all 4. Feeling tired or having little energy: not at all 5. Poor appetite or overeating: not at all 6. Feeling bad about yourself - or that you are a failure or have let yourself or your family down: not at all 7. Trouble concentrating on things, such as reading the newspaper or watching television: not at all 8. Moving or speaking so slowly that other people could have noticed. Or the opposite - being so fidgety or restless that you have been moving around a lot more than usual: not at all 9. Thoughts that you would be better off or of hurting yourself in some way: not at all Total score: 0 Depression Screening Interpretation: Negative Depression Screening Done: Yes Source: Developed by Drs. Maksim Roth, Luiza Morales, Marc Chavez and colleagues, with an educational nadia from [employer]. Thrive Questionnaire Date Thrive assessed: 08/28/24 I am a: Patient What is your living situation today?: I have a steady place to live Within the past 12 months, did the food you bought not last and you didn't have the money to get more?: Never true Within the past 12 months, did you worry whether your food would run out before you got money to buy more?: Never true Do you have trouble paying for medicines?: No Do you have trouble getting transportation to medical appointments?: No Do you have trouble paying your heating and electricity bill?: No Do you have trouble taking care of your child, family member or friend?: No Do you have trouble with day-to-day activities such as bathing, preparing meals, shopping, managing finances, etc.?: No Are you currently unemployed and looking for a job?: No Are you interested in more education?: No Please select the resources that you would like help with: None Currently or been in a relationship where the following occur: No concerns reported THRIVE Score: 0 AUDIT C Alcohol Use Questionnaire (AUDIT-C) 1. How often do you have a drink containing alcohol?: Never 3. How often do you have six or more drinks on one occasion?: Never Total Score: 0 RADHA-7 AMB Questionnaire RADHA-7 Date RADHA - 7 assessed: 08/28/24 Feeling nervous, anxious, or on edge: 0 = Not at all Not being able to stop or control worryin = Not at all Worrying too much about different things: 0 = Not at all Trouble relaxin = Not at all Being so restless that it is hard to sit still: 0 = Not at all Becoming easily annoyed or irritable: 0 = Not at all Feeling afraid as if something awful might happen: 0 = Not at all Total RADHA-7 score (0-4 normal; 5-9 mild; 10-14 moderate; 15-21 severe): 0 Source: Developed by Drs. Maksim Roth, Luiza Morales, Marc Chavez and colleagues, with an educational nadia from [employer]. Physical exam (Primary Care) Vital Signs: Last Vital Signs Temp 97.5 F 08/28/24 09:50 Pulse 91 08/28/24 09:50 BP 152/90 H 08/28/24 09:50 Pulse Ox 99 08/28/24 09:50 Oxygen Delivery Method Room Air 08/28/24 09:50 BMI result Body Mass Index 43.8 Tobacco/Smoking Status: Tobacco use Status Tobacco use date assessed 08/28/24 08/28/24 10:00 Patient Tobacco Use Status Never used Tobacco 08/28/24 10:00 e-Cigarette/Vaping Use Never Used 08/28/24 10:00 PHQ-9: PHQ-9 Score PHQ-9: Total score 0 08/28/24 10:00 Depression Screening Interpretation: Negative Thrive Assessment: Date of Thrive Assessment Date Thrive assessed 08/28/24 08/28/24 10:00 Currently or been in a relationship where the following occur: No concerns reported Results AMB Hemoglobin A1c AMB Hemoglobin A1c 6.1 % Last Edit by NATALYA Lopez on 08/28/24 10:05 Results Reviewed Results Reviewed: Laboratory Last Values Hgb A1c (Clinic) 6.1 % (4.0-6.0) H 08/28/24 09:48 Coding Level of Care Code Est Pt Level 4 (97971) Complex EM visit Add On G2211 Diagnoses Essential hypertension I10 Type 2 diabetes mellitus without complication, with long-term current use of insulin E11.9; Z79.4 Diabetes mellitus type: type 2 Diabetes mellitus skilled nursing insulin use: with skilled nursing use Diabetes mellitus complication status: without complication Class 2 severe obesity with body mass index (BMI) of 35 to 39.9 with serious comorbidity E66.01 Assessment & Plan Assessment & Plan (1) Essential hypertension: Code(s): I10 - Essential (primary) hypertension Category: Medical Plan: BP in range. Continue current medications. (2) Diabetes mellitus: Code(s): E11.9 - Type 2 diabetes mellitus without complications Category: Medical Qualifiers: Diabetes mellitus type: type 2 Diabetes mellitus long term acute care registered nurse insulin use: with skilled nursing use Diabetes mellitus complication status: without complication Qualified Code(s): E11.9 - Type 2 diabetes mellitus without complications; Z79.4 - [facility] (current) use of insulin Plan: A1c is in range. Continue current meds (3) Class 2 severe obesity with body mass index (BMI) of 35 to 39.9 with serious comorbidity: Code(s): E66.01 - Morbid (severe) obesity due to excess calories Category: Medical Plan: On Mounjaro Plan History of Present Illness The patient is a 49-year-old female presenting with a focus on wellness care and management of chronic conditions including Type 2 Diabetes Mellitus and Hypertension. She is currently maintaining stable blood glucose levels with Toujeo injections at night and Novolog at mealtimes. Adjustments to the Novolog dosage were made due to prior episodes of hypoglycemia since introducing Mounjaro to her treatment plan in June. The patient has experienced significant weight reduction of 11 pounds since starting Mounjaro, with recent lab results indicating a Hemoglobin A1c of 6.1%. The patient's Hypertension is monitored with medications including amlodipine and losartan, with propranolol taken on occasion before clinic visits. She has not reported any recent medication changes. Preventive screening conversations included prior mammography and plans for upcoming screening in the summer. Colon cancer screening options were also discussed as she approaches the recommended age for regular screening. The patient had previously deferred colonoscopy scheduling due to irregular menstruation post-IUD removal. Active engagement in regular physical exercise is noted, with bi-weekly cardio classes supplemented by additional home workouts. Social History - Regular cardio classes twice a week, ranging from 60 to 90 minutes. - Additional 20-minute home workouts focused on strength, mobility, and cardio alternating with class days. - Recent weight reduction and ongoing weight management since introduction of Mounjaro therapy. - Wellness screening participation, including planned mammography and consideration of colonoscopy for cancer screening. Review of Systems - Endocrine: Reports good glycemic control. - Cardiovascular: Reports elevated blood pressure readings. - General: Reports weight loss of 11 pounds. Physical Exam General: Cooperative and healthy appearing Nutritional Appearance: Well nourished Orientation/consciousness: Patient oriented x3 Limitations: No limitations Head: Normal to inspection General: Appearance normal, both eyes and all related structures Neck: Normal visual inspection Chest: Normal palpation of entire chest wall Respiratory: Normal respiratory effort Neurology: Patient oriented x3 Results - Labs: Hemoglobin A1c at 6.1%. Plan 1. 1%. Hypertension management remains with amlodipine and losartan without changes, given the stable condition. Prophylactic measures discussed involve regular screenings, specifically stating her intention to schedule a colonoscopy. An active lifestyle consisting of routine exercise and weight management continues to be encouraged.: Patient was informed and verbally consented to the use of an ambient scribe for clinic note documentation during this visit. Discussion Notes During the consultation, I reviewed the management plan for the patient's Type 2 Diabetes Mellitus, confirming that her current combination of Toujeo, Novolog, and Mounjaro is effectively maintaining her glycemic control. For her hypertension, we decided to maintain the existing therapeutic regimen involving amlodipine and losartan and agreed to check on this pathway unless new symptoms arise. Regarding cancer screenings, we thoroughly reviewed the need for mammography in the upcoming summer and debated methods for colon cancer screening. Though both colonoscopy and Cologuard tests were potential options, the patient agreed on moving forward with scheduling a colonoscopy. We also discussed her compliance with regular exercise and noted favorable weight reduction, enhancing her overall health pursuits. We have planned to review her condition again in six months to ensure continuous optimization of her health management strategies. Patient Instructions - Continue current insulin regimen with Toujeo at night and Novolog at mealtimes. - Maintain dosage of Mounjaro and monitor blood glucose levels. - Keep taking amlodipine and losartan as directed. - Schedule and complete a colonoscopy. - Engage in cardiovascular exercises twice a week and continue 20-minute workouts on alternate days. - Schedule a follow-up visit in six months. 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
[2024-08-28 09:50] VITALS: BP 152/90; PULSE 91; TEMP 36.4; O2SAT 99; BMI 43.8
== END 2024-08-28 10:28 | disposition home or self-care (01) ==
LOC: HO.HMCH 09:27
PROVIDERS: PCP Internal Medicine; Visit Provider Internal Medicine
DX: E11.9 Type 2 diabetes mellitus without complications (principal); Z79.4 Long term (current) use of insulin; E66.01 Morbid (severe) obesity due to excess calories; Z68.41 Body mass index [BMI] 40.0-44.9, adult; I10 Essential (primary) hypertension

== ENCOUNTER → 2024-08-28 09:26 | Outpatient (BNVA) | payer BC, SELFPAY | PROVIDERS: PCP Internal Medicine; Visit Provider Internal Medicine | DX: I10 Essential (primary) hypertension (principal); E11.9 Type 2 diabetes mellitus without complications; E66.01 Morbid (severe) obesity due to excess calories; Z68.41 Body mass index [BMI] 40.0-44.9, adult; Z79.4 Long term (current) use of insulin; Z79.899 Other long term (current) drug therapy | CPT/HCPCS: 83036; 96127 ==

== ENCOUNTER 2025-02-26 14:55 | Outpatient (AMB) | payer BC, SELFPAY ==
--- NOTE | 2025-02-26 15:05 | A.OFFPC_ITS ---
Vital Signs 02/26/25 15:10 Height 5 ft 8 in Weight 285 lb 6 oz BMI 43.4 BP 146/90 H Blood Pressure Location Rt brachial Position Sitting Pulse 96 Pulse Source Pulse Oximeter Temp 97.3 F Temp Source Temporal Artery Scan Pulse Oximetry (%) 96 Oxygen Delivery Method Room Air Intake Visit Reasons: 6mth f/u - see comments Intake Note: Patient is here to follow up on DM, HTN. Life Science Research Assistant Required: No Shoe Associate: Not Required per policy Accompanied by: Self / Same As Patient Allergies No Known Allergies Allergy (Verified 02/26/25 15:09) Tobacco use date assessed: 02/26/25 Dental Screening Dental Screen Date: 08/28/24 [facility] Medical History (Updated 04/16/24 @ 17:23 by Cadence Abreu PA-C) Hyperlipidemia Follow-up exam, 3-6 months since previous exam Essential hypertension Class 2 severe obesity with body mass index (BMI) of 35 to 39.9 with serious comorbidity Diabetes mellitus Surgical History History of wisdom tooth extraction History of ovarian resection Family History Father Prostate cancer, Onset Age: 60 Skin cancer Mother No problems noted. 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 1. Little interest or pleasure in doing things: not at all 2. Feeling down, depressed, or hopeless: not at all 3. Trouble falling or staying asleep, or sleeping too much: not at all 4. Feeling tired or having little energy: not at all 5. Poor appetite or overeating: not at all 6. Feeling bad about yourself - or that you are a failure or have let yourself or your family down: not at all 7. Trouble concentrating on things, such as reading the newspaper or watching television: not at all 8. Moving or speaking so slowly that other people could have noticed. Or the opposite - being so fidgety or restless that you have been moving around a lot more than usual: not at all 9. Thoughts that you would be better off or of hurting yourself in some way: not at all Total score: 0 Depression Screening Interpretation: Negative Depression Screening Done: Yes Source: Developed by Drs. Maksim Roth, Luiza Morales, Marc Chavez and colleagues, with an educational nadia from [employer]. Thrive Questionnaire Date Thrive assessed: 02/24/25 I am a: Patient What is your living situation today?: I have a steady place to live Within the past 12 months, did the food you bought not last and you didn't have the money to get more?: Never true Within the past 12 months, did you worry whether your food would run out before you got money to buy more?: Never true Do you have trouble paying for medicines?: No Do you have trouble getting transportation to medical appointments?: No Do you have trouble paying your heating and electricity bill?: No Do you have trouble taking care of your child, family member or friend?: No Do you have trouble with day-to-day activities such as bathing, preparing meals, shopping, managing finances, etc.?: No Are you currently unemployed and looking for a job?: No Are you interested in more education?: No Please select the resources that you would like help with: None Currently or been in a relationship where the following occur: No concerns reported THRIVE Score: 0 AUDIT C Alcohol Use Questionnaire (AUDIT-C) 1. How often do you have a drink containing alcohol?: Never Total Score: 0 RADHA-7 AMB Questionnaire RADHA-7 Date RADHA - 7 assessed: 08/28/24 Feeling nervous, anxious, or on edge: 0 = Not at all Not being able to stop or control worryin = Not at all Worrying too much about different things: 0 = Not at all Trouble relaxin = Not at all Being so restless that it is hard to sit still: 0 = Not at all Becoming easily annoyed or irritable: 0 = Not at all Feeling afraid as if something awful might happen: 0 = Not at all Total RADHA-7 score (0-4 normal; 5-9 mild; 10-14 moderate; 15-21 severe): 0 Source: Developed by Drs. Maksim Roth, Luiza Morales, Marc Chavez and colleagues, with an educational nadia from [employer]. Physical exam (Primary Care) Vital Signs: Last Vital Signs Temp 97.3 F 02/26/25 15:10 Pulse 96 02/26/25 15:10 BP 146/90 H 02/26/25 15:10 Pulse Ox 96 02/26/25 15:10 Oxygen Delivery Method Room Air 02/26/25 15:10 BMI result Body Mass Index 43.4 Tobacco/Smoking Status: Tobacco use Status Tobacco use date assessed 02/26/25 02/26/25 15:17 Patient Tobacco Use Status Never used Tobacco 02/26/25 15:06 e-Cigarette/Vaping Use Never Used 02/26/25 15:06 PHQ-9: PHQ-9 Score PHQ-9: Total score 0 02/26/25 15:17 Depression Screening Interpretation: Negative Thrive Assessment: Date of Thrive Assessment Date Thrive assessed 02/24/25 02/26/25 15:06 Currently or been in a relationship where the following occur: No concerns reported Results AMB Hemoglobin A1c AMB Hemoglobin A1c 4.8 % Last Edit by NATALYA Lopez on 02/26/25 15:29 Results Reviewed Results Reviewed: Laboratory Last Values Hgb A1c (Clinic) 4.8 % (4.0-6.0) 02/26/25 15:09 Coding Assessment & Plan Assessment & Plan Orders: Orders AMB Hemoglobin A1c Today E11.9 - Type 2 diabetes mellitus without complications, Z79.4 - jail (current) use of insulin
[2025-02-26 15:10] VITALS: BP 146/90; PULSE 96; TEMP 36.3; O2SAT 96; BMI 43.4
== END 2025-02-26 15:40 | disposition home or self-care (01) ==
LOC: HO.HMCH 14:56
PROVIDERS: PCP Internal Medicine; Visit Provider Internal Medicine
DX: E11.9 Type 2 diabetes mellitus without complications (principal); Z79.4 Long term (current) use of insulin

== ENCOUNTER → 2025-02-26 14:55 | Outpatient (BNVA) | payer BC, SELFPAY | PROVIDERS: PCP Internal Medicine; Visit Provider Internal Medicine | DX: E11.9 Type 2 diabetes mellitus without complications (principal); Z79.4 Long term (current) use of insulin | CPT/HCPCS: 83036; 96127 ==